=== PATIENT | female | born 2000 | race Hispanic/Latino ===

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

== ENCOUNTER 2018-06-01 01:07 | Emergency (ER) | payer SELFPAY | END 2018-06-01 03:07 | disposition home or self-care (01) | LOC: ERS 01:07 | DX: L02.415 Cutaneous abscess of right lower limb (principal); E78.5 Hyperlipidemia, unspecified; I10 Essential (primary) hypertension; E11.9 Type 2 diabetes mellitus without complications | CPT/HCPCS: 10061; 87070; 87077; 87186; 87205 ==

== ENCOUNTER 2018-06-02 22:01 | Emergency (ER) | payer SELFPAY | END 2018-06-02 22:30 | disposition home or self-care (01) | LOC: ERS 22:01 | DX: Z48.817 Encounter for surgical aftercare following surgery on the skin and subcutaneous tissue (principal); I10 Essential (primary) hypertension; E78.5 Hyperlipidemia, unspecified; E11.9 Type 2 diabetes mellitus without complications; F41.0 Panic disorder [episodic paroxysmal anxiety]; F32.9 Major depressive disorder, single episode, unspecified | CPT/HCPCS: 99282 ==

== ENCOUNTER 2018-12-06 22:20 | Emergency (ER) | payer SELFPAY ==
--- NOTE | 2018-12-06 23:09 | RAD ---
EXAM: Right rib series with chest x-ray HISTORY: Rib pain after fall COMPARISON: None FINDINGS: Single view of the chest shows a normal sized cardiomediastinal silhouette. There is no elaine dence of consolidation, mass, or pleural effusion. Multiple views of the right ribs shows no evidence of displaced rib fracture. No underlying pleural t hickening or pneumothorax are seen. IMPRESSION: 1. No evidence of displaced rib fracture. 2. No evidence of acute cardiopulmonary disease.
[2018-12-06] MEDS ORDERED: Acetaminophen 325 MG TAB ONE (23:23)
== END 2018-12-06 23:38 | disposition home or self-care (01) ==
LOC: ERS 22:20
DX: S20.211A Contusion of right front wall of thorax, initial encounter (principal); O9A.219 Injury, poisoning and certain other consequences of external causes complicating pregnancy, unspecified trimester; O99.330 Smoking (tobacco) complicating pregnancy, unspecified trimester; F17.290 Nicotine dependence, other tobacco product, uncomplicated; W10.9XXA Fall (on) (from) unspecified stairs and steps, initial encounter

== ENCOUNTER 2018-12-21 20:48 | Emergency (ER) | payer MEDICAID, SELFPAY ==
[2018-12-21 22:52] LABS: Anion Gap 14 mmol/L (10-20); BUN (Urea Nitrogen) 6 mg/dL (7.0-18.7); Calc. Creatinine Clearance 0 mL/min (70-130); Calcium 9.3 mg/dL (7.8-10.44); Carbon Dioxide 22 mmol/L (22-29); Chloride 104 mmol/L (98-107); Estimated GFR-MDRD Greater than 90; Glucose 185 mg/dL (70-105); Potassium 3.6 mmol/L (3.5-5.1); Sodium 136 mmol/L (136-145)
== END 2018-12-21 23:20 | disposition home or self-care (01) ==
LOC: ERS 20:48
DX: O24.911 Unspecified diabetes mellitus in pregnancy, first trimester (principal); E11.65 Type 2 diabetes mellitus with hyperglycemia; Z87.891 Personal history of nicotine dependence; Z79.84 Long term (current) use of oral hypoglycemic drugs; Z3A.08 8 weeks gestation of pregnancy
CPT/HCPCS: 36415; 36416; 80048; 99284

== ENCOUNTER 2018-12-22 10:38 | Observation (INO) | payer MEDICAID ==
[2018-12-22] MEDS ORDERED: Docusate 100 MG CAP PO PRN (11:30)
[2018-12-22] MEDS ORDERED: Acetaminophen 500 MG TAB PO PRN (11:30)
[2018-12-22] MEDS ORDERED: Ondansetron PF 4 MG/2 ML Vial IVP PRN (11:30)
[2018-12-22] MEDS ORDERED: Dextrose 5% in Water 1,000 ML IV PRN (11:33)
[2018-12-22] MEDS ORDERED: Dextrose 50% Abboject 50 ML SYRINGE SLOW IVP PRN (11:33)
--- NOTE | 2018-12-22 11:44 | PDOC.FPROB ---
FMR OB H&P: HPI - History of Present Illness Chief Complaint: Elevated Blood sugar History of Present Illness: 18 yo @ 9.1 wks dated by LMP comes in due to uncontrolled blood glucose at clinics. She was found to have an Hgb A1c of 10.4 and her glucose in clinic today was 200. She was dx with pregestational diabetes in 2012. She has not been on any mediation ever for this. She was started on metformin recently but sugars still remain elevated. Pt denies polyuria/polydipsia, denies VB/LOF/ Discharge. No contractions. FMR OB H&P: Current - Care : 3 Para: 0 Gestational age: 9.1 weeks Due date: 07/26/19 Dating Criteria: LMP FMR OB H&P: History - Past Medical History PMH: DM2, Hx of HTN and HLD (both controlled with lifestyle, taken off meds in 2015) - OB History OB History: 2 previous mis-carriages. 2013- during 1 Trimester 2015- EGA unknown - Surgical History Sx History: none - Social History Social History: Denies TAD - Family History Family History: DM FMR OB H&P: Medications - Current Home Medications: Medication Instructions Recorded Confirmed Type metFORMIN [Glucophage] 1,000 mg PO BID-WM 03/06/16 12/22/18 History Pnv No.95/Ferrous Fum/Folic AC 1 each PO DAILY 12/22/18 12/22/18 History [ Formula] Allergies/Adverse Reactions: Allergies Allergy/AdvReac Type Severity Reaction Status Date / Time No Known Allergies Allergy Verified 12/22/18 12:44 FMR OB H&P: ROS - Review of Systems General: denies: fever/chills, fatigue ENT: denies: nasal congestion, frequent nose bleed Cardiovascular: denies: chest pain, palpitation Respiratory: denies: cough, congestion, shortness of breath Gastrointestinal: denies: abdominal pain, indigestion Genitourinary (Female): denies: incontinence, dysuria, polyuria Musculoskeletal: denies: pain, stiffness Neurologic: denies: numbness, syncope Integumentary: denies: rash, lesions Breast: denies: lumps, bumps Endocrine: denies: cold intolerance, heat intolerance, polydipsia, polyuria Psychological: denies: depression, anxiety FMR OB H&P: Vital Signs - Maternal Vital signs: BP 100/56, HR 93, RR 20, TEMP 97.7 FMR OB H&P: Physical Exam - Physical Exam General: NAD, awake, alert and oriented HEENT: EOMI, grossly normal vision, grossly normal hearing Neck: supple, trachea midline Chest: non-tender to palpation Heart: RRR, normal S1/S2 General: CTAB, no respiratory distress Abdomen: soft, non-tender Musculoskeletal: normal gait and station, pulses present Neurological: no tremor, no focal deficit Skin: no rash, good tugor Lymphatic: no unusual bruising or bleeding, no purpura Psychiatric: intact recent and remote memory, good judgement and insight FMR OB H&P: Results - Labs Lab results: Laboratory Results - last 24 hr 12/22/18 10:53 POC Glucose 159 H FMR OB H&P: A/P - Problem List (1) Current Visit: Yes Status: Acute (2) History of chronic hypertension Current Visit: Yes Status: Acute Code(s): Z86.79 - PERSONAL HISTORY OF OTHER DISEASES OF THE CIRCULATORY SYSTEM (3) History of hyperlipidemia Current Visit: Yes Status: Acute Code(s): Z86.39 - PERSONAL HISTORY OF ENDO , NUTRITIONAL AND METABOLIC DISEASE (4) Hyperglycemia due to type 2 diabetes mellitus Current Visit: No Status: Acute Code(s): E11.65 - TYPE 2 DIABETES MELLITUS WITH HYPERGLYCEMIA Qualifiers: Diabetes mellitus nursing home insulin use: with salvage determiner use Qualified Code( s): E11.65 - Type 2 diabetes mellitus with hyperglycemia; Z79.4 - long term ( current) use of insulin Comment: -poorly controlled diabetes secondary to medical noncompliance -HbA1C 12 -presented to ER yesterday with blood sugar >500, likely in HHS -responded well to IV/SC insulin -currently running in 300s -morning basal dose increased to 30 units and evening dose increased to 20 units -continue 1/2NS@200 mls/hr Discussion: pre-gestational DM, uncontrolled A- uncontrolled with metformin alone. Will need to titrate up insulin regimen. Discussed NPH vs Lantus with lispro with pt. She opts for lantus. Will need to gain good control especially considering pts risk and hx of spontaneous abortions. P- Start insulin titration with lantus and lispro -continue home metformin -accuchecks fasting and 2hr post prandial -notify MD if accucheck greater than or equal to 130 -Diet: 2000 kcal/day divided into 3 meals and 2 snacks (one being at bedtime) -daily weights -DM education including dietary counselling Hx of chronic HTN A- pt was on lisinopril but taken off medications as pt was controlled with lifestyle modifications in 2015 P- will monitor BPs iUP, first trimester A- Pt has not been dated by US yet P- vitamin -transvaginal US for dating
[2018-12-22 12:21] VITALS: BMI 37.1
[2018-12-22 14:29] LABS: Bilirubin Negative (Negative); Blood, Urine Negative (Negative); Clarity Turbid (Clear); Glucose, Urine (Dipstick) Greater than 1000 mg/dL (Negative); Leukocyte 500 Leu/uL (Negative); Mucous/LPF Rare LPF (<2+); Nitrite Negative (Negative); Protein, Urine (Dipstick) 10 mg/dL (Neg-Trace); Urobilinogen Normal mg/dL (Less than 2); WBC/HPF Greater than 50 HPF (0-3)
[2018-12-22 14:52] LABS: Bacteria/HPF 2+ HPF (None Seen)
[2018-12-22 14:53] LABS: Urine Culture Reflex No No
--- NOTE | 2018-12-22 16:41 | ULT ---
ULTRASOUND PELVIC TRANSVAGINAL: Date: 12/22/18 HISTORY: Dates. COMPARISON: None. FINDINGS: Real-time Huston scale and color evaluation of the gravid uterus was performed via transabdominal and t ransvaginal approach. Spectral analysis was also performed. Right ovary is normal with adequate vascular flow. Left ovary not well seen. Single, viable intrauterine , with heart rate documented at 153 beats/minute. Average ultrasound age is 7 weeks/4 days. Estimated date of delivery is 08/06/2019. Robards-rump length 1.53 cm, 7 weeks/6 days. Gestational sac diameter 2.2 cm, 7 weeks/1 day. IMPRESSION: Normal single, viable intrauterine , with average ultrasound age of 7 weeks/4 days. Estimate d date of delivery is 08/06/2019. POS: HOME
[2018-12-22] MEDS: metFORMIN 500 MG TAB PO SCH (16:48)
[2018-12-22] MEDS ORDERED: HumaLOG 300 UNITS/3 ML VIAL SC SCH ×2 (17:00→21:30)
--- NOTE | 2018-12-22 22:37 | PDOC.EVN ---
Event Note - Event Note Event Note: Visited patient, mother and boyfriend at patient's request to see and explain dating ultrasound results. She would like some pictures of U/S if possible to take home. Also discussed with patient the importance of blood sugar control for herself and for her . Spoke about risk to development including heart defects, LGA, etc., and loss. Patient voiced understanding. Also discussed blood sugar goals of fasting <95 and 2-hour postprandial <120. Advised patient not to snack the rest of the evening (had large dinner and burrito wrap post dinner) in order to have a fasting sugar under the goal. Patient again voiced understanding. Lillie Aguayo MD PGY-1
[2018-12-23] MEDS: metFORMIN 500 MG TAB PO SCH ×2 (08:20→16:51)
[2018-12-23] MEDS: HumaLOG 300 UNITS/3 ML VIAL SC SCH ×3 (08:21→16:53)
--- NOTE | 2018-12-23 08:23 | PDOC.FM ---
- Subjective Subjective: Pt feeling well this AM. No complaints. Verbalized understanding regarding the importance of compliance with CC diet. no fever/chills, no nausea/vomiting - Objective Vital Signs & Weight: Vital Signs (12 hours) Temp Pulse Resp BP 12/23/18 04:02 98.2 F 95 16 103/53 L 12/23/18 01:10 98.7 F 91 12 116/57 L Weight Weight 85.275 kg I&O: 12/22/18 12/23/18 12/24/18 06:59 06:59 06:59 Intake Total 350 Balance 350 Phys Exam - Physical Examination Constitutional: NAD HEENT: moist MMs, sclera anicteric Neck: no nodes, no JVD Respiratory: no wheezing, clear to auscultation bilateral Cardiovascular: RRR, no significant murmur Gastrointestinal: soft, non-tender Musculoskeletal: pulses present Neurological: normal sensation, moves all 4 limbs Psychiatric: normal affect, A&O x 3 Skin: normal turgor, cap refill <2 seconds Dx/Plan (1) Status: Acute (2) History of chronic hypertension Code(s): Z86.79 - PERSONAL HISTORY OF OTHER DISEASES OF THE CIRCULATORY SYSTEM Status: Acute (3) History of hyperlipidemia Code(s): Z86.39 - PERSONAL HISTORY OF ENDO, NUTRITIONAL AND METABOLIC DISEASE Status: Acute (4) Hyperglycemia due to type 2 diabetes mellitus Code(s): E11.65 - TYPE 2 DIABETES MELLITUS WITH HYPERGLYCEMIA Status: Acute Qualifiers: Diabetes mellitus terminologist insulin use: with chcf use Qualified Code( s): E11.65 - Type 2 diabetes mellitus with hyperglycemia; Z79.4 - half-way ( current) use of insulin - Plan Plan: pre-gestational DM, uncontrolled A- PP BG in 160s x2, Fasting this AM 132. Pt will benefit from further titration and counselling on dietary compliance importance. She had burrito from cafe on her own accord last night after given dinner. P- Increased Lispro from 8 -->10u TID-WM -Increase Lantus from 30-->34u QAM -continue home metformin -accuchecks fasting and 2hr post prandial -notify MD if accucheck greater than or equal to 130 -Diet: 2000 kcal/day divided into 3 meals and 2 snacks (one being at bedtime) -daily weights -DM education including dietary counselling -pt to perform all accuchecks and insulin injections Hx of chronic HTN A- pt was on lisinopril but taken off medications as pt was controlled with lifestyle modifications in 2016. BPs WNL since admission P- will monitor BPs iUP, first trimester A- Dating US performed yesterday shows new dates, GUILLERMO 08/06/2019 P- vitamin dispo: probable DC tomorrow Addendum - Attending - Attending Attestation Date/Time: 12/23/18 [id number] I personally evaluated the patient and discussed the management with Dr. Grande. I agree with the History, Examination, Assessment and Plan documented above with any addition or exceptions noted below. DM control improved on insulin. Pt. noncompliant with diet overnight. Stressed to her it's critical necessity. Will see how she does after full 24 hours of insulin maintenance.
[2018-12-23] MEDS ORDERED: Insulin Glargine 34 UNITS in Pre-Filled Syringe 1 EACH SC SCH (09:00)
[2018-12-23] MEDS ORDERED: Insulin Glargine 30 UNITS in Pre-Filled Syringe SC SCH (09:00)
[2018-12-23] MEDS: Prenatal Vitamin 1 TAB PO SCH (09:29)
--- NOTE | 2018-12-24 07:25 | PDOC.FM ---
- Subjective Subjective: Pt feeling well, reports she learned a lot from the dietary counselling yesterday. Feeling motivated to be compliant with diet. - Objective MAR Reviewed: Yes Vital Signs & Weight: Vital Signs (12 hours) Temp Pulse Resp BP Pulse Ox 12/24/18 04:29 98.4 F 88 18 98/57 L 12/24/18 00:20 98.4 F 91 18 110/59 L 12/23/18 20:30 98.6 F 97 18 103/55 L 97 Weight Weight 84.141 kg I&O: 12/23/18 12/24/18 12/25/18 06:59 06:59 06:59 Intake Total 350 2220 Output Total 550 Balance 350 1670 Additional Labs: Laboratory Tests 12/24/18 06:14 POC Glucose 128 H Phys Exam - Physical Examination Constitutional: NAD HEENT: moist MMs, sclera anicteric Neck: no JVD, supple Respiratory: no wheezing, clear to auscultation bilateral Cardiovascular: RRR, no significant murmur Gastrointestinal: soft, non-tender Musculoskeletal: no edema, pulses present Neurological: normal sensation, moves all 4 limbs Psychiatric: normal affect, A&O x 3 Skin: no rash, normal turgor Dx/Plan (1) Status: Acute (2) History of chronic hypertension Code(s): Z86.79 - PERSONAL HISTORY OF OTHER DISEASES OF THE CIRCULATORY SYSTEM Status: Acute (3) History of hyperlipidemia Code(s): Z86.39 - PERSONAL HISTORY OF ENDO, NUTRITIONAL AND METABOLIC DISEASE Status: Acute (4) Hyperglycemia due to type 2 diabetes mellitus Code(s): E11.65 - TYPE 2 DIABETES MELLITUS WITH HYPERGLYCEMIA Status: Acute Qualifiers: Diabetes mellitus terminal system operator insulin use: with terminal system operator use Qualified Code( s): E11.65 - Type 2 diabetes mellitus with hyperglycemia; Z79.4 - terminal superintendent ( current) use of insulin - Plan Plan: pre-gestational DM, insulin dependent A- PP BGs improved yesterday in 120/130/150s. Fasting still needing improvement this AM at 128. Pt seems motivated all together. P- continue Lispro 10u TID-WM -Increase Lantus from 34-->36u QAM -continue home metformin -accuchecks fasting and 2hr post prandial -notify MD if accucheck greater than or equal to 130 -Diet: 2000 kcal/day divided into 3 meals and 2 snacks (one being at bedtime) -daily weights -DM education including dietary counselling -pt to perform all accuchecks and insulin injections Hx of chronic HTN A- pt was on lisinopril but taken off medications as pt was controlled with lifestyle modifications in 2016. BPs WNL since admission P- will monitor BPs iUP, first trimester A- Dating US performed yesterday shows new dates, GUILLERMO 08/06/2019 P- vitamin dispo: probable DC today
[2018-12-24] MEDS: metFORMIN 500 MG TAB PO SCH (09:00)
[2018-12-24] MEDS ORDERED: Insulin Glargine 36 UNITS in Pre-Filled Syringe 1 EACH SC SCH (09:00)
[2018-12-24] MEDS: HumaLOG 300 UNITS/3 ML VIAL SC SCH ×2 (09:00→13:23)
[2018-12-24] MEDS: Prenatal Vitamin 1 TAB PO SCH (09:00)
[2018-12-24 12:05] VITALS: BP 110/63; TEMP 99.1
--- NOTE | 2018-12-24 17:15 | PDOC.EVN ---
Event Note - Event Note Event Note: Pt called to verify insurance will cover her meds -called once at 1330 12/24, she had not yet picked it up. Instructed to pick it up NICOLE. -called again 12/24 at 1500 no answer -called again 12/24 at 1715 pt still has not picked up insulin. But reports she will get it soon and will call the landscape maintenance internship pager and leave her number if she insurance does not cover lantus.
--- NOTE | 2018-12-25 01:29 | DIS ---
DATE OF ADMISSION: 12/22/2018 DATE OF DISCHARGE: 12/24/2018 ADMITTING ATTENDING: Helder Weiner MD DISCHARGE ATTENDING: Helder Weiner MD RESIDENT: Helder Grande MD CONSULTS: None. PROCEDURES: On 12/22/2018, pelvic transvaginal ultrasound, dating ultrasound. Impression: Normal single viable intrauterine with average ultrasound, age of 7 weeks 4 days, estimated date of delivery is 08/06/2019. DISCHARGE MEDICATIONS: 1. Metformin 1000 mg p.o. b.i.d. 2. vitamin 1 each daily. 3. Hypodermic needles or insulin. 4. Humalog 10 units subcutaneous t.i.d. with meals. 5. Insulin Lantus 38 units subcutaneous q.a.m. DISCONTINUED MEDICATIONS: None. PRIMARY DIAGNOSIS: Pregestational diabetes, insulin dependent. SECONDARY DIAGNOSES: Intrauterine , first trimester; history of chronic hypertension. HISTORY OF PRESENT ILLNESS/HOSPITAL COURSE: This is a 18-year-old female who is G3, P0-0-2-0, who presented from the clinic at 9.1 weeks gestational age, dated by last menstrual period, coming in for uncontrolled blood glucose. The patient had history of A1c of 10.4 and random blood glucose check of 200 outside of hospital and so, the patient was admitted and titrated up on insulin. After discussion with the patient, it was deemed that she would be started on a regimen of Lantus every morning with short-acting insulin with each meal. Additionally, the patient had diabetic education, dietary education, and education per nursing on how to properly do blood glucose checks and administer her insulin. The patient was also taught on how to keep a blood glucose log and educated on the importance of maintaining good control of sugars for the viability of her fetus. The patient's fasting and postprandial sugars decreased with insulin management as insulin was titrated up and it was eventually deemed that the patient was ready for discharge, verbalized intent to continue with diabetic diet, close monitoring of postprandial and fasting blood glucose checks and insulin use. Prescriptions were sent to her pharmacy at [facility] and verified with Case Management that they will be most likely be covered by her insurance. The patient was instructed to go immediately to Pharmacy after discharge and pick them up and to call our pager if she should have any issues with insurance not covering her insulin or otherwise, again an alternative insulin regimen would be sent. The patient agreed to this plan and was discharged home. Additionally, the patient's stay in the hospital was significant for a pelvic ultrasound as stated above, which predated her estimated due date to be 08/06/2019. DISPOSITION: Stable. DISCHARGE INSTRUCTIONS: 1. Location: Home. 2. Diet: Consisting carb diabetic diet, 2000 kilocalories per day divided into three meals with two small snacks, one snack being before bedtime. 3. Followup: Follow up in clinic in 3 days, on Thursday. 4. Activity: As tolerated. Job ID: [id number]
== END 2018-12-24 13:50 | disposition home or self-care (01) ==
LOC: ERS 10:38 → INTOOBSV 11:07 → 3SW 11:07 → UNDOADMOB 11:07 → 3SW 14:09 → EDSTATUS 15:13 → UNDODISOB 12-24 13:50 → 3SW 01-03 15:11
PROVIDERS: ADMIT Family Medicine; ATTEND Family Medicine
DX: O24.311 Unspecified pre-existing diabetes mellitus in pregnancy, first trimester (principal); E11.65 Type 2 diabetes mellitus with hyperglycemia; O10.911 Unspecified pre-existing hypertension complicating pregnancy, first trimester; O99.281 Endocrine, nutritional and metabolic diseases complicating pregnancy, first trimester; E78.5 Hyperlipidemia, unspecified; Z87.59 Personal history of other complications of pregnancy, childbirth and the puerperium; Z91.14 Patient's other noncompliance with medication regimen; Z79.4 Long term (current) use of insulin; Z3A.09 9 weeks gestation of pregnancy
CPT/HCPCS: 36416; 76856; 81001; G0378; J1815

== ENCOUNTER 2019-01-13 00:09 | Emergency (ER) | payer MEDICAID ==
[2019-01-13] MEDS ORDERED: Lidocaine 1% w/Epinephrine 1:100K 20 ML VIAL ONE (00:22)
== END 2019-01-13 00:42 | disposition home or self-care (01) ==
LOC: ERS 00:09
DX: L02.212 Cutaneous abscess of back [any part, except buttock and flank] (principal); L72.9 Follicular cyst of the skin and subcutaneous tissue, unspecified; E13.9 Other specified diabetes mellitus without complications; E78.5 Hyperlipidemia, unspecified; I10 Essential (primary) hypertension; Z87.891 Personal history of nicotine dependence
CPT/HCPCS: 10060; J2001

== ENCOUNTER 2019-01-18 08:22 | Emergency (ER) | payer MEDICAID ==
--- NOTE | 2019-01-18 11:09 | RAD ---
EXAM: Chest 2 views: HISTORY: Shortness of breath COMPARISON: None. FINDINGS: There is a normal-sized cardiomediastinal silhouette. There is no evidence of consolidation, mass, or pleural effusion. The bones are unremarkable. IMPRESSION: No evidence of acute cardiopulmonary disease
[2019-01-18 11:30] LABS: #Eosinphils 0.2 thou/uL (0.0-0.7); #Lymphocytes 2.2 thou/uL (1.20-3.40); #Monocytes 0.6 thou/uL (0.11-0.59); #Neutrophils 6.1 thou/uL (1.40-6.50); %Basophils 0.4 % (0.0-1.0); %Eosinophils 2.3 % (0.0-10.0); %Lymphocytes 24.3 % (28.0-48.0); %Monocytes 6.5 % (0.0-4.0); %Neutrophils 66.5 % (31.0-61.0); Hemoglobin 12.7 g/dL (12.0-16.0); Mean Corpuscular HGB CONC 34.3 g/dL (32.0-36.0); Mean Corpuscular Hemoglobin 28.5 pg (25.0-35.0); Mean Corpuscular Volume 83.1 fL (78.0-98.0); Mean Platelet Volume 7.9 fL (7.4-10.4); Platelet Count 331 thou/uL (130-400); RBC Distribution Width 11.6 % (11.5-14.5); Red Blood Cell (RBC) Count 4.48 mill/uL (4.00-5.20); White Blood Cell (WBC) Count 9.2 thou/uL (4.8-10.8)
[2019-01-18 11:40] LABS: BHCG - Serum POSITIVE (NEGATIVE); Pregs Control Background? CLEAR/WHITE (CLR/WHITE); Pregs Control Bar Appear? YES (CONTROL BAR)
[2019-01-18 11:48] LABS: ALT (SGPT) 16 U/L (8-55); AST (SGOT) 9 U/L (5-34); Alkaline Phosphatase 78 U/L (40-150); Anion Gap 14 mmol/L (10-20); BUN (Urea Nitrogen) 8 mg/dL (7.0-18.7); Bilirubin, Total 0.3 mg/dL (0.2-1.2); Calc. Creatinine Clearance 0 mL/min (70-130); Calcium 9.4 mg/dL (7.8-10.44); Carbon Dioxide 24 mmol/L (22-29); Chloride 102 mmol/L (98-107); Estimated GFR-MDRD Greater than 90; Globulin 3.8 g/dL (2.4-3.5); Glucose 267 mg/dL (70-105); Potassium 3.7 mmol/L (3.5-5.1); Protein, Total 7.8 g/dL (6.0-8.3); Sodium 136 mmol/L (136-145)
== END 2019-01-18 12:47 | disposition home or self-care (01) ==
LOC: ERS 08:22
DX: O03.9 Complete or unspecified spontaneous abortion without complication (principal); R07.9 Chest pain, unspecified; E78.5 Hyperlipidemia, unspecified; I10 Essential (primary) hypertension; E13.9 Other specified diabetes mellitus without complications; Z87.891 Personal history of nicotine dependence; Z79.899 Other long term (current) drug therapy
CPT/HCPCS: 36415; 71046; 80053; 84484; 84703; 85025; 85379; 93005

== ENCOUNTER 2019-02-03 06:32 | Emergency (ER) | payer OTHER, MEDICAID ==
[2019-02-03 07:04] LABS: #Eosinphils 0.3 thou/uL (0.0-0.7); #Lymphocytes 2.5 thou/uL (1.20-3.40); #Monocytes 0.6 thou/uL (0.11-0.59); #Neutrophils 5.4 thou/uL (1.40-6.50); %Basophils 0.4 % (0.0-1.0); %Eosinophils 3.3 % (0.0-10.0); %Lymphocytes 28.6 % (28.0-48.0); %Monocytes 6.7 % (0.0-4.0); Hemoglobin 13.1 g/dL (12.0-16.0); Mean Corpuscular HGB CONC 34.5 g/dL (32.0-36.0); Mean Corpuscular Hemoglobin 28.6 pg (25.0-35.0); Mean Platelet Volume 8.1 fL (7.4-10.4); Platelet Count 278 thou/uL (130-400); RBC Distribution Width 11.6 % (11.5-14.5); Red Blood Cell (RBC) Count 4.57 mill/uL (4.00-5.20); White Blood Cell (WBC) Count 8.8 thou/uL (4.8-10.8)
[2019-02-03 07:20] LABS: BHCG - Serum POSITIVE (NEGATIVE); Pregs Control Background? CLEAR/WHITE (CLR/WHITE); Pregs Control Bar Appear? YES (CONTROL BAR)
[2019-02-03 07:28] LABS: ALT (SGPT) 21 U/L (8-55); AST (SGOT) 15 U/L (5-34); Alkaline Phosphatase 84 U/L (40-150); Anion Gap 11 mmol/L (10-20); BUN (Urea Nitrogen) 11 mg/dL (7.0-18.7); Bilirubin, Total 0.3 mg/dL (0.2-1.2); Calc. Creatinine Clearance 0 mL/min (70-130); Calcium 9.4 mg/dL (7.8-10.44); Carbon Dioxide 25 mmol/L (22-29); Chloride 104 mmol/L (98-107); Estimated GFR-MDRD Greater than 90; Globulin 3.5 g/dL (2.4-3.5); Glucose 207 mg/dL (70-105); Potassium 3.6 mmol/L (3.5-5.1); Protein, Total 7.5 g/dL (6.0-8.3); Sodium 136 mmol/L (136-145)
[2019-02-03] MEDS ORDERED: Acetaminophen 500 MG TAB ONE (08:58)
[2019-02-03] MEDS ORDERED: Ondansetron ODT 4 MG TAB ONE (08:58)
[2019-02-03] MEDS ORDERED: Ketorolac Tromethamine 30 MG/ML VIAL ONE (08:58)
--- NOTE | 2019-02-03 09:11 | ULT ---
TRANSABDOMINAL AND TRANSVAGINAL PELVIC ULTRASOUND WITH SINGH SCALE AND COLOR FLOW AND SPECTRAL DOPPLER IMAGING: HISTORY: Vaginal bleeding. FINDINGS: The uterus measures 8.5 x 4.5 x 4.9 cm. The right ovary is not visualized. The left ovary measures 2.1 x 0.8 x 0.9 cm. Flow is demonstrated to the left ovary. A single intrauterine gestational sac is seen with measurements corresponding to an estimated gestati onal age of 8 weeks 1 day and GUILLERMO at 09/14/2019. The crown-lump length measures 1.28 cm and the gestat ional sac diameter is 3.5 cm. No heart tones are identified. No free fluid is seen in the cul -de-sac. IMPRESSION: Single intrauterine gestation of 8 weeks 1 day estimated gestational age without heart tones. The possibility of 1st trimester demise should be considered. Correlation with serial serum beta HCG levels and followup ultrasound would be helpful. POS: WAYNE
== END 2019-02-03 09:26 | disposition home or self-care (01) ==
LOC: ERS 06:32
DX: O03.9 Complete or unspecified spontaneous abortion without complication (principal); E11.9 Type 2 diabetes mellitus without complications; F32.9 Major depressive disorder, single episode, unspecified; Z87.891 Personal history of nicotine dependence; Z79.899 Other long term (current) drug therapy
CPT/HCPCS: 36415; 76856; 80053; 84702; 84703; 85025; 86850; 86900; 86901; 93976; 96372; J1885; Q0162

== ENCOUNTER 2019-07-04 21:15 | Emergency (ER) | payer MEDICAID, OTHER ==
[2019-07-04 21:37] LABS: #Basophils 0.1 thou/uL (0.0-0.2); #Eosinphils 0.1 thou/uL (0.0-0.7); #Lymphocytes 2.3 thou/uL (1.20-3.40); #Monocytes 0.6 thou/uL (0.11-0.59); #Neutrophils 6.6 thou/uL (1.40-6.50); %Basophils 0.8 % (0.0-1.0); %Eosinophils 1.4 % (0.0-10.0); %Lymphocytes 23.7 % (21.0-51.0); %Monocytes 6.6 % (0.0-10.0); %Neutrophils 67.5 % (42.0-75.0); Hemoglobin 14.3 g/dL (12.0-16.0); Mean Corpuscular HGB CONC 33.9 g/dL (32.0-36.0); Mean Corpuscular Hemoglobin 28.1 pg (27.0-31.0); Mean Corpuscular Volume 82.8 fL (78.0-98.0); Mean Platelet Volume 9.3 fL (7.4-10.4); Platelet Count 263 thou/uL (130-400); RBC Distribution Width 12.3 % (11.5-14.5); Red Blood Cell (RBC) Count 5.11 mill/uL (4.20-5.40); White Blood Cell (WBC) Count 9.8 thou/uL (4.8-10.8)
[2019-07-04 22:00] LABS: ALT (SGPT) 22 U/L (8-55); AST (SGOT) 16 U/L (5-34); Albumin 4.3 g/dL (3.5-5.0); Alkaline Phosphatase 96 U/L (40-110); Anion Gap 12 mmol/L (10-20); BUN (Urea Nitrogen) 6 mg/dL (7.0-18.7); Bilirubin, Total 0.4 mg/dL (0.2-1.2); Calc. Creatinine Clearance 0 mL/min (70-130); Calcium 9.4 mg/dL (7.8-10.44); Carbon Dioxide 24 mmol/L (22-29); Chloride 101 mmol/L (98-107); Estimated GFR-MDRD Greater than 90; Glucose 374 mg/dL (70-105); Lipase 30 U/L (8-78); Potassium 3.4 mmol/L (3.5-5.1); Protein, Total 8.3 g/dL (6.0-8.3); Sodium 134 mmol/L (136-145)
[2019-07-04 22:11] LABS: BHCG - Serum POSITIVE (NEGATIVE); Pregs Control Background? CLEAR/WHITE (CLR/WHITE); Pregs Control Bar Appear? YES (CONTROL BAR)
[2019-07-04 23:42] LABS: Bilirubin Negative (Negative); Blood, Urine Negative (Negative); Clarity Clear (Clear); Glucose, Urine (Dipstick) Greater than 1000 mg/dL (Negative); Leukocyte 75 Leu/uL (Negative); Nitrite 2+ (Negative); Protein, Urine (Dipstick) Negative (Neg-Trace); Squamous Epithelial 21-50 HPF (0-3); Urobilinogen Normal mg/dL (Less than 2); Yeast-Budding 1+ HPF (None Seen)
[2019-07-04 23:43] LABS: Pregnancy Test - Urine (BHCG) POSITIVE (Negative); Pregu Control Background? CLEAR/WHITE (CLR/WHITE); Pregu Control Bar Appear? YES (CONTROL BAR); Specific Gravity 1.038 (1.002-1.036)
[2019-07-04 23:49] LABS: Bacteria/HPF 1+ HPF (None Seen)
--- NOTE | 2019-07-05 03:40 | CON ---
DATE OF CONSULTATION: 07/05/2019 CHIEF COMPLAINT: Abdominal pain. HISTORY OF PRESENT ILLNESS: The patient is a 19-year-old, G5, P0 female, presenting to the emergency room with abdominal cramping, concerned about miscarriage due to her history and came for evaluation. During her workup, the patient was noted to have a 1.5 cm cystic mass on her ovary and no intrauterine with a quantitative HCG at around 900. Given the possibility of ectopic , LINUX ADMIN ENGINEER was consulted for evaluation. In meeting with the patient, the patient reports that she has a history of 4 first-trimester spontaneous losses. She reports that she has never had a workup with the providers because she is scared that they will tell her she will never be able to have children. She reports that she has been having some cramping midline that brought her in for the day. She reports this pain is less intense than menstrual cramps. She denies any pain in her lateral pelvic region. Her last menstrual period was the 26 of May. The patient denies any fever, chills, headache, chest pain, shortness of breath, nausea, vomiting, diarrhea, constipation, hip problems, knee problems, muscle weakness, any new rashes, vaginal bleeding, leakage of fluid. PAST MEDICAL HISTORY: Type 2 diabetes. She is on metformin 1000 mg twice a day. Reports fasting to be under 100 and her postprandials to be often times up to 150s, but not any higher. 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 PAST SURGICAL HISTORY: Negative. SOCIAL HISTORY: The patient reports quitting tobacco use over a year ago. Denies alcohol or drug use. ALLERGIES: NO KNOWN DRUG ALLERGIES. MEDICATIONS: 1. Sertraline 25 mg a day. 2. Metformin 1000 mg twice a day. PHYSICAL EXAMINATION: VITAL SIGNS: Blood pressure 132/69, pulse 114, respiratory rate of 20, temperature 99.3, saturating 100% on room air. GENERAL: She appears to be in no acute distress. She is tearful during our conversation, but she is alert, oriented, cooperative, and pleasant to interact with. HEENT: Head is normocephalic, atraumatic. LUNGS: Clear to auscultation bilaterally. HEART: Has regular rate and rhythm. ABDOMEN: Soft. She has no right upper quadrant tenderness. No lateral tenderness in her adnexa. She does have some suprapubic tenderness. EXTREMITIES: Nontender, nonedematous. LABORATORY DATA: The patient has a white count of 9.8, hemoglobin 14.3, hematocrit of 42.3, and platelets of 263,000. Urinalysis shows a specific gravity of 1.038, 2+ nitrites, leukocyte esterase, also 25-50 squamous cells. A serum HCG of 832, progesterone of 11.8. Pelvic ultrasound report not available; however, I did talk to the tech, who reports about a 1.4 cm heterogeneous cystic mass on the ovary and a thick endometrium, but no visible IUP at this point. ASSESSMENT AND PLAN: The patient is a 19-year-old female with a and history of recurrent loss. She has been having some cramping, but no evidence of adnexal tenderness or pain. Quant levels are too low for us to be able to see definitively an intrauterine . The patient has been counseled to the possibility of an ectopic and though she has no symptoms currently, the patient has been asked to monitor her symptoms for right recurrent pelvic pain and to come in if that becomes present, persistent, or worsening. Otherwise, the patient has been asked to follow up with clinic, which she has an appointment for next for July 13. She has also been asked to start a baby aspirin and increase her folic acid. I have stressed the importance of a thorough workup should this fail and to identify areas that can be improved upon to be able to maintain a . I have discussed my recommendations with the ER provider, who will be discharging her home once the progesterone levels had returned. The patient ultimately was discharged home. Job ID: [id number]
--- NOTE | 2019-07-05 09:19 | ULT ---
PRELIMINARY REPORT/[facility]/EMERGENCY AFTER HOURS PROCEDURE: This report was discussed with Tigre Coleman DO by Lilia Ma on Jul 05, 2019 00:36:00 CARBONIZER TESTER. Addendum electronically signed by Lilia Ma on July 05, 2019 12:36:20 AM CARBONIZER TESTER EXAM: US Obstetrical, Complete <14 weeks CLINICAL HISTORY: Midline pelvic cramping pain x 3 days, no vaginal bleeding, HCG 832 HX previous mis carriages TECHNIQUE: Transvaginal and transabdominal imaging of the maternal pelvis and a <14 week gestation [employer] image documentation. COMPARISON: None provided. FINDINGS: GESTATION: No evidence for intrauterine gestation UTERUS: Unremarkable. No myometrial mass. Measures 7.5 x 3.4 x 4.0 cm. Endometrial thickening is se en at 18.2 mm CERVIX: Closed. Unremarkable. OVARIES: The RIGHT side measures 2.5 x 1.5 x 2.9 cm and demonstrates a small complex cyst measuring 1.3 x 1.2 x 1.2 cm. The LEFT ovary could not be visualized FREE FLUID: No free fluid. IMPRESSION: No evidence for intrauterine gestation at this time. Endometrial thickening is noted with a small co mplex RIGHT adnexal cyst and the possibility of a right-sided ectopic is not excluded. Aura rt-term follow-up ultrasound is advised along with clinical correlation ELECTRONICALLY SIGNED BY: Ulises Roy MD Jul 05, 2019 12:32:13 AM CARBONIZER TESTER This report is intended for review by the ordering physician only, in accordance of law. If you recei ve this report in error, please call [facility] at [phone]. FINAL REPORT BY DR. LARA EMERGENCY AFTER HOURS ULTRASOUND PELVIC ULTRASOUND TRANSVAGINAL DOPPLER DUPLEX: DATE: 07/05/2019. TIME: 12:16 a.m. HISTORY: A 19-year-old female with 1st trimester pelvic pain. TECHNIQUE: Transabdominal transducer used to evaluate intrapelvic contents using the urinary bladder as an acous tic window. Endovaginal transducer used to visualize intrapelvic contents in greater detail. Color fl ow Doppler and Pulsed Doppler spectral waveform analysis of ovaries. FINDINGS: No intrauterine gestational sac. Normal-size right ovary. Left ovary not visualized. No free fluid in the cul-de-sac. No ectopic gestation identified. However, a negative ultrasound does not rule out ectopic . No major disagreement with preliminary report by [facility]. IMPRESSION: 1. No intrauterine gestation identified. 2. An 18 mm thick endometrial stripe at the uterine fundus. SIRISHA Glass POS: CET
== END 2019-07-05 02:58 | disposition home or self-care (01) ==
LOC: ERS 21:15
DX: O23.41 Unspecified infection of urinary tract in pregnancy, first trimester (principal); O24.111 Pre-existing type 2 diabetes mellitus, in pregnancy, first trimester; O99.341 Other mental disorders complicating pregnancy, first trimester; F32.9 Major depressive disorder, single episode, unspecified; E11.9 Type 2 diabetes mellitus without complications; Z79.84 Long term (current) use of oral hypoglycemic drugs; Z87.891 Personal history of nicotine dependence; Z79.899 Other long term (current) drug therapy; Z3A.01 Less than 8 weeks gestation of pregnancy
CPT/HCPCS: 36415; 76856; 80053; 81003; 81015; 81025; 83690; 84144; 84702; 84703; 85025; 87804

== ENCOUNTER 2019-07-11 14:30 | Emergency (ER) | payer MEDICAID ==
[2019-07-11 15:17] LABS: #Eosinphils 0.1 thou/uL (0.0-0.7); #Lymphocytes 2.2 thou/uL (1.20-3.40); #Monocytes 0.6 thou/uL (0.11-0.59); #Neutrophils 5.7 thou/uL (1.40-6.50); %Basophils 0.3 % (0.0-1.0); %Eosinophils 1.6 % (0.0-10.0); %Lymphocytes 25.7 % (21.0-51.0); %Monocytes 6.9 % (0.0-10.0); %Neutrophils 65.5 % (42.0-75.0); Hemoglobin 13.6 g/dL (12.0-16.0); Mean Corpuscular HGB CONC 34.5 g/dL (32.0-36.0); Mean Corpuscular Hemoglobin 28.8 pg (27.0-31.0); Mean Corpuscular Volume 83.7 fL (78.0-98.0); Mean Platelet Volume 9.2 fL (7.4-10.4); Platelet Count 236 thou/uL (130-400); RBC Distribution Width 12.2 % (11.5-14.5); Red Blood Cell (RBC) Count 4.72 mill/uL (4.20-5.40); White Blood Cell (WBC) Count 8.7 thou/uL (4.8-10.8)
[2019-07-11 15:38] LABS: ALT (SGPT) 36 U/L (8-55); AST (SGOT) 22 U/L (5-34); Alkaline Phosphatase 81 U/L (40-110); Anion Gap 15 mmol/L (10-20); BUN (Urea Nitrogen) 7 mg/dL (7.0-18.7); Bilirubin, Total 0.5 mg/dL (0.2-1.2); Calc. Creatinine Clearance 0 mL/min (70-130); Calcium 9.1 mg/dL (7.8-10.44); Carbon Dioxide 20 mmol/L (22-29); Chloride 105 mmol/L (98-107); Estimated GFR-MDRD Greater than 90; Globulin 3.1 g/dL (2.4-3.5); Glucose 298 mg/dL (70-105); Potassium 4.2 mmol/L (3.5-5.1); Protein, Total 7.1 g/dL (6.0-8.3); Sodium 136 mmol/L (136-145)
[2019-07-11 17:31] LABS: Bacteria/HPF 2+ HPF (None Seen); Bilirubin Negative (Negative); Blood, Urine Negative (Negative); Clarity Turbid (Clear); Glucose, Urine (Dipstick) Greater than 1000 mg/dL (Negative); Leukocyte 500 Leu/uL (Negative); Nitrite 2+ (Negative); Protein, Urine (Dipstick) 20 mg/dL (Neg-Trace); Urobilinogen Normal mg/dL (Less than 2); WBC/HPF Greater than 50 HPF (0-3)
[2019-07-11 17:33] LABS: RBC/HPF 0-3 HPF (0-3)
--- NOTE | 2019-07-11 19:08 | ULT ---
US Pelvic Transvag W Doppler History: Pelvic pain Comparison: Pelvic ultrasound July 04, 2019 Findings: Real-time grayscale, color, and spectral analysis of the pelvis was performed transabdomina l and transvaginal approach. The uterus measures 8.7 x 7.4 x 4.5 cm. Left ovary measures 1.4 x 1.8 x 3.4 cm in the right ovary dori sures 3 x 2.1 x 3 cm. There appears to be an intrauterine gestational sac with mean sac diameter of 1.12 cm. No pole or yolk sac is yet appreciated. No free fluid in the pelvis. No subchorionic h emorrhage. Right ovarian flow is noted on the transvaginal exam. The left ovary cannot be evaluated transvaginal ly and flow was not interrogated. The average ultrasound age using the gestational sac diameter is 5 weeks 6 day with estimated date of delivery March 06, 2020. Impression: 1. Intrauterine gestational sac without pole or yolk sac yet appreciated may reflect an early p regnancy. Close follow-up hCG and pelvic ultrasound recommended. 2. No free fluid within the pelvis.
== END 2019-07-11 19:58 | disposition home or self-care (01) ==
LOC: ERS 14:30
DX: O23.41 Unspecified infection of urinary tract in pregnancy, first trimester (principal); O24.111 Pre-existing type 2 diabetes mellitus, in pregnancy, first trimester; O99.341 Other mental disorders complicating pregnancy, first trimester; F32.9 Major depressive disorder, single episode, unspecified; Z87.891 Personal history of nicotine dependence; Z79.84 Long term (current) use of oral hypoglycemic drugs; Z79.899 Other long term (current) drug therapy; Z3A.01 Less than 8 weeks gestation of pregnancy
CPT/HCPCS: 36415; 76856; 80053; 81003; 81015; 83690; 84702; 85025; 87077; 87086; 96361; 96374

== ENCOUNTER 2019-07-18 16:24 | Inpatient (IN) | payer OTHER ==
[2019-07-18 18:59] VITALS: BMI 39.9
[2019-07-18] MEDS ORDERED: Acetaminophen 325 MG TAB PO PRN (19:09)
[2019-07-18 19:29] LABS: #Eosinphils 0.2 thou/uL (0.0-0.7); #Lymphocytes 2.2 thou/uL (1.20-3.40); #Monocytes 0.6 thou/uL (0.11-0.59); #Neutrophils 5.2 thou/uL (1.40-6.50); %Basophils 0.5 % (0.0-1.0); %Eosinophils 2.1 % (0.0-10.0); %Lymphocytes 26.7 % (21.0-51.0); %Monocytes 7.2 % (0.0-10.0); %Neutrophils 63.6 % (42.0-75.0); Hemoglobin 13.3 g/dL (12.0-16.0); Mean Corpuscular HGB CONC 35.6 g/dL (32.0-36.0); Mean Corpuscular Hemoglobin 30.4 pg (27.0-31.0); Mean Corpuscular Volume 85.3 fL (78.0-98.0); Mean Platelet Volume 9.1 fL (7.4-10.4); Platelet Count 209 thou/uL (130-400); RBC Distribution Width 12.3 % (11.5-14.5); Red Blood Cell (RBC) Count 4.37 mill/uL (4.20-5.40); White Blood Cell (WBC) Count 8.2 thou/uL (4.8-10.8)
[2019-07-18] MEDS ORDERED: Sodium Chloride 0.9% 10 ML ONE (19:45)
[2019-07-18 19:49] LABS: ALT (SGPT) 32 U/L (8-55); AST (SGOT) 17 U/L (5-34); Albumin 3.9 g/dL (3.5-5.0); Alkaline Phosphatase 65 U/L (40-110); Anion Gap 12 mmol/L (10-20); BUN (Urea Nitrogen) 7 mg/dL (7.0-18.7); Bilirubin, Total 0.3 mg/dL (0.2-1.2); Calc. Creatinine Clearance 194 mL/min (70-130); Calcium 9.2 mg/dL (7.8-10.44); Carbon Dioxide 24 mmol/L (22-29); Chloride 104 mmol/L (98-107); Estimated GFR-MDRD Greater than 90; Globulin 3.2 g/dL (2.4-3.5); Glucose 223 mg/dL (70-105); Potassium 3.6 mmol/L (3.5-5.1); Protein, Total 7.1 g/dL (6.0-8.3); Sodium 136 mmol/L (136-145)
[2019-07-18 20:10] LABS: Hemoglobin A1c 10.5 % (4.0-6.0)
[2019-07-18] MEDS ORDERED: HumaLOG 300 UNITS/3 ML VIAL SC SCH (21:00)
[2019-07-18] MEDS ORDERED: NPH, Human Insulin Isophane 300 UNIT/3 ML VIAL SC SCH (21:00)
--- NOTE | 2019-07-18 21:18 | PDOC.FPROB ---
FMR OB H&P: Medications - Current Home Medications: Medication Instructions Recorded Confirmed Type metFORMIN [Glucophage] 1,000 mg PO BID-WM 03/06/16 07/18/19 History Entriken, Disposable [Easy Touch 1 each SC QID #120 dis.needle 12/23/18 Rx Hypodermic Needle] HumaLOG [HumaLOG Vial] 10 units SC TID-WM #12 vial 12/24/18 Rx Insulin Glargine [Lantus Vial] 38 units SC QAM #3 vial 12/24/18 Rx Vitamin 1 tab PO DAILY tab 12/24/18 07/18/19 Rx Allergies/Adverse Reactions: Allergies Allergy/AdvReac Type Severity Reaction Status Date / Time No Known Allergies Allergy Verified 07/18/19 18:50 FMR OB H&P: Vital Signs - Maternal Vital signs: Vital Signs - First Documented Temp Pulse Resp BP 97.3 F L 95 18 123/67 07/18/19 18:30 07/18/19 18:30 07/18/19 18:30 07/18/19 18:30 FMR OB H&P: Results - Labs Lab results: Laboratory Results - last 24 hr 07/18/19 07/18/19 07/18/19 19:19 19:19 19:19 WBC 8.2 RBC 4.37 Hgb 13.3 Hct 37.3 MCV 85.3 MCH 30.4 MCHC 35.6 RDW 12.3 Plt Count 209 MPV 9.1 Neutrophils % 63.6 Lymphocytes % 26.7 Monocytes % 7.2 Eosinophils % 2.1 Basophils % 0.5 Neutrophils # 5.2 Lymphocytes # 2.2 Monocytes # 0.6 H Eosinophils # 0.2 Basophils # 0.0 Sodium 136 Potassium 3.6 Chloride 104 Carbon Dioxide 24 Anion Gap 12 BUN 7 Creatinine 0.65 Estimated GFR (MDRD) Greater than 90 Glucose 223 H POC Glucose Hemoglobin A1c 10.5 H Calcium 9.2 Total Bilirubin 0.3 AST 17 ALT 32 Alkaline Phosphatase 65 Serum Total Protein 7.1 Albumin 3.9 Globulin 3.2 Albumin/Globulin Ratio 1.2 07/18/19 19:19 WBC RBC Hgb Hct MCV MCH MCHC RDW Plt Count MPV Neutrophils % Lymphocytes % Monocytes % Eosinophils % Basophils % Neutrophils # Lymphocytes # Monocytes # Eosinophils # Basophils # Sodium Potassium Chloride Carbon Dioxide Anion Gap BUN Creatinine Estimated GFR (MDRD) Glucose POC Glucose 224 H Hemoglobin A1c Calcium Total Bilirubin AST ALT Alkaline Phosphatase Serum Total Protein Albumin Globulin Albumin/Globulin Ratio FMR OB H&P: A/P - Problem List (1) Hyperglycemia due to type 2 diabetes mellitus Current Visit: No Status: Acute Code(s): E11.65 - TYPE 2 DIABETES MELLITUS WITH HYPERGLYCEMIA Qualifiers: Diabetes mellitus rn long term care insulin use: with rn long term care use Qualified Code( s): E11.65 - Type 2 diabetes mellitus with hyperglycemia; Z79.4 - USP ( current) use of insulin Comment: -poorly controlled diabetes secondary to medical noncompliance -HbA1C 12 -presented to ER yesterday with blood sugar >500, likely in HHS -responded well to IV/SC insulin -currently running in 300s -morning basal dose increased to 30 units and evening dose increased to 20 units -continue 1/2NS@200 mls/hr (2) Current Visit: No Status: Acute Discussion: Date/Time: 07/18/192117 PCP: [facility] HPI: This is a 19 yo F at 7.4 wks by LMP being admitted for management of uncontrolled pre-gestational DM. Her A1C at the [facility] was reported to be 11.5 and she has not been able to get started on insulin as of yet. She states she was prescribed the insulin yesterday but has not started as of yet. She did not follow up with anyone for management of her DM between pregnancies. She does not check her sugars at home because her accucheck machine is broken. She has had nausea and has been taking Zofran from a prior . History: OB hx: 3 miscarriages <10wks PMH: DMII, denies asthma, HTN PSH: denies Meds: PNV, metformin All: NKDA Soc Hx: denies smoking, alcohol, drugs currently. She was smoking 2 cigarettes per day but stopped 1 mo ago Fam Hx: denies downs, congenital defects, breast/ovarian cancers REVIEW OF SYSTEMS: Gen: no fever, chills, or sweats Neuro: no numbness/tingling, no weakness, denies headache ENT: denies congestion Eyes: no visual changes Resp: denies cough, no production, no SOB, no wheeze Card: denies chest pain, no palpitations GI: + nausea in AM, tolerating PO : no dysuria, no hematuria Skin: no rash, no erythema Psych: denies hx anxiety/depression Vitals: T: 97.3 R: 18 BP: 123/65 P:85 at: 98% on RA PHYSICAL EXAMINATION: General: NAD, alert and oriented x3 HEENT: EOMI, normal sclera Neck: Supple. Full ROM. Heart/Cardiovascular System: RRR, Cap refill < 3 seconds, no rub, no murmur Lungs/Respiratory System: clear to auscultation bilaterally. No increased work of breathing. Room air. Abdomen/Gastro-Intestinal System: no abdominal tenderness, normal bowel sounds, Gravid Extremities: Warm extremities. No cyanosis or edema. Neuro: No gross deficits appreciated Psychiatry: Awake, Alert and cooperative with exam Skin: no lesions, no rashes Musculoskeletal: Full ROM A/P: This is a 19 yo F at 7.4 wks by LMP being admitted for management of uncontrolled pre-gestational DM. # Un-controlled pre-gestational DM - A1c 10.5 - Start NPH 28U AM, 10U PM Lispro 10 w/ breakfast, 10 w/ supper - Check Am fasting glucose, 2 hrs postprandial, discussed with nursing # , N/V - Instructed to stop Zofran - Started diclegis # cHTN? - records in [facility] indicate cHTN, patient denies hx of HTN - [facility] records are down x3 providers tonight, check in AM Addendum - Attending - Attending Attestation Date/Time: 07/18/19 2330 I personally evaluated the patient and discussed the management with Dr. Rosetta Luz I agree with the History, Examination, Assessment and Plan documented above with any addition or exceptions noted below - 19 yo F at 7.4 wks by LMP being admitted for management of uncontrolled pre-gestational DM. Her A1C at the [facility] was reported to be 11.5 and she has not been able to get started on insulin as of yet. She states she was prescribed the insulin yesterday but has not started as of yet. She did not follow up with anyone for management of her DM between pregnancies. She does not check her sugars at home because her accucheck machine is broken. She has had nausea and has been taking Zofran from a prior . Exam repeated by me and agree with resident's findings. A/P: 1) Pregestational DM- Will start on NPH nad lispro; patient education and training. Case mgmt for glucometer and supplies. .
[2019-07-18] MEDS ORDERED: Doxylamine 25 MG TAB PO PRN (21:28)
[2019-07-18] MEDS ORDERED: Dextrose 5% in Water 1,000 ML IV PRN (21:51)
[2019-07-18] MEDS ORDERED: Dextrose 50% Abboject 50 ML SYRINGE SLOW IVP PRN (21:51)
[2019-07-19] MEDS: Doxylamine 25 MG TAB PO SCH ×2 (00:01→21:35)
[2019-07-19] MEDS: pyridOXINE 50 MG (B6) TAB PO SCH ×4 (00:01→21:33)
[2019-07-19] MEDS ORDERED: Ibuprofen 800 MG TAB ONE (04:42)
[2019-07-19] MEDS ORDERED: HumaLOG 300 UNITS/3 ML VIAL SC SCH ×4 (08:00→17:00)
[2019-07-19] MEDS ORDERED: metFORMIN 500 MG TAB PO SCH (08:00)
[2019-07-19] MEDS ORDERED: NPH, Human Insulin Isophane 300 UNIT/3 ML VIAL SC SCH ×3 (08:21→21:00)
--- NOTE | 2019-07-19 09:09 | PDOC.BPN ---
<Kath Dent - Last Filed: 07/19/19 09:06> - Brief Progress Note No acute events overnight Denies polyuria, polydipsia Denies VB/VB/LOF/CTX AVSS PE: NAD, RRR, CTAB, no edema A/P: 1. -Dating sono -PNV 2. Uncontrolled preGDM -A1c 10.5 -High dose folic acid + pNV -24 hr protein collection -EKG -Insulin regimen --> qAM: 32u NPH + 15u Lispro/qPM: 12u Lispro/qHS: 12u NPH -Diabetes education, pt will start administering insulin & doing accuchecks -After discussion of unknown metformin teratogenic effects, will hold off and do insulin for now 3. Hx of adjustment disorder with depressed mood -Reports doing well -Denies SI/HI -Declines restarting zoloft Discussed with Dr. Sanders <Maria Luisa Sanders - Last Filed: 07/19/19 10:22> Addendum - Attending - Attending Attestation Date/Time: 07/19/19 1015 I personally evaluated the patient and discussed the management with Dr. Dent I agree with the History, Examination, Assessment and Plan documented above with any addition or exceptions noted below. HD#1 Patient admitted for hyperglycemia in with recurrent miscarriages due to uncontrolled DM. 1. Uncontrolled DM, likely class B: Insulin regiment started last night. Not at goal (<95, <120). Will adjust based on weight. Will use 0.8 units/kg of insulin. Will start with NPH and Lispro. If requiring high doses of insulin will need to switch to basal insulin and meal time short acting. Discussed risk/ benefits of metformin and insulin. Patient decided to use strict insulin. DM education today. Patient to start accu checks and insulin injections today. CM following to help with medication coverage. 24 hour urine protein collection today. CMP, TSH , EKG reviewed. 2. BMI 40: weight goal of < 20 lbs. Caloric intake calculated to be 2000 for this . Will continue to monitor. 3. Recurrent miscarriage: APLS labs ordered in clinic. Patient has not done yet. Encouraged to get done. Discussed adding to blood work in AM. Mostly likely dx is uncontrolled DM. 4. : TVUS ordered today. Last sono only showed gestational sac. Trend beta hCG as needed. 5. hx of adjustment disorder: Continue to monitor for pio depression. 6. ppx: Continue PNV and folic acid for neuro tube defects. SCDs for DVT ppx. Will need ASA at 12.0 wks for preE ppx. Fide
[2019-07-19] MEDS ORDERED: Folic Acid 1 MG TAB PO SCH (09:15)
[2019-07-19] MEDS: NPH, Human Insulin Isophane 300 UNIT/3 ML VIAL SC SCH (09:27)
[2019-07-19] MEDS ORDERED: Ondansetron ODT 8 MG TAB SL PRN (09:44)
[2019-07-19] MEDS ORDERED: Ondansetron PF 4 MG/2 ML Vial IVP PRN (09:44)
[2019-07-19] MEDS ORDERED: Docusate 100 MG CAP PO PRN (09:44)
[2019-07-19] MEDS ORDERED: Polyethylene Glycol 3350 17 GM Packet PO PRN (09:44)
[2019-07-19] MEDS: Prenatal Vitamin 1 TAB PO SCH (10:03)
[2019-07-19] MEDS ORDERED: HumaLOG 300 UNITS/3 ML VIAL SC PRN (10:33)
--- NOTE | 2019-07-19 11:50 | ULT ---
Exam: Transabdominal and endovaginal pelvic ultrasound HISTORY:Evaluate gestational age COMPARISON:07/11/2019 TECHNIQUE: Transabdominal and endovaginal imaging of the pelvis is performed. Ovaries are interrogate d with grayscale, color flow, Doppler imaging and spectral wave form analysis FINDINGS: Uterus: No myometrial masses. Uterus measurin.1 x 8.0 x 4.6 cm. Endometrium: There is a gestational sac, yolk sac and pole. Neola-rump length is 0.62 cm, corre sponding to gestational age of 6 weeks 3 days. heart tones: 122 bpm Subchorionic hemorrhage: None. Free fluid: None Right ovary: Normal echotexture Right ovary measurement: 2.0 x 3.6 x 2.2 cm Left ovary: Normal echotexture. Left ovary measurements: 3.5 x 1.3 x 2.6 cm Ovarian Doppler: There is vascular flow to the left and right ovary. IMPRESSION: Currently, there is a single intrauterine gestation with heart tones. Gestational a ge by crown-rump length is 6 weeks 3 days. Estimated delivery date is 03/09/2020. pole and yolk sac were not appreciated on the previous exam.
[2019-07-19] MEDS: HumaLOG 300 UNITS/3 ML VIAL SC PRN ×2 (15:09→21:41)
[2019-07-19] MEDS ORDERED: Sodium Chloride 0.9% 10 ML ONE (21:15)
[2019-07-20] MEDS: HumaLOG 300 UNITS/3 ML VIAL SC PRN ×4 (06:34→21:14)
[2019-07-20] MEDS ORDERED: HumaLOG 300 UNITS/3 ML VIAL SC SCH ×4 (08:00→12:06)
[2019-07-20] MEDS: Folic Acid 1 MG TAB PO SCH (08:20)
[2019-07-20] MEDS: pyridOXINE 50 MG (B6) TAB PO SCH ×3 (08:20→21:18)
[2019-07-20] MEDS: Prenatal Vitamin 1 TAB PO SCH (08:20)
[2019-07-20] MEDS: NPH, Human Insulin Isophane 300 UNIT/3 ML VIAL SC SCH (08:22)
[2019-07-20] MEDS ORDERED: NPH, Human Insulin Isophane 300 UNIT/3 ML VIAL SC SCH ×2 (08:36→08:37)
[2019-07-20] MEDS ORDERED: FLU VACC QS2019-20(6MOS UP)/PF 60 MCG/0.5 ML SYRINGE IM ONE (09:00)
--- NOTE | 2019-07-20 09:40 | PDOC.OBAPN ---
R OB AP PN: Sub - Interval History Hospital Day: 2 Chief Complaint: uncontrolled pre GDM Indentification: at 6.5 here for uncontrolled preGDM Interval History: No concerns today. Denies polyuria, polydipsia, VB/VD/CTX/LOF R OB AP PN: Obj - Maternal Vital signs: BP: 103/56 HR: 98 RR: 18 Tmax: 98.5 Pox: 98% on RA Wt: 89kg - Urine output I&O: 07/19/19 07/20/19 07/21/19 06:59 06:59 06:59 Intake Total 400 Output Total 2100 Balance -1700 R OB AP PN: Exam - Physical Exam General: NAD, awake, alert and oriented HEENT: normocephalic and atraumatic, EOMI, MMM, conjunctiva clear Neck: trachea midline Heart: RRR, normal S1/S2 General: CTAB, no respiratory distress, good air movement Abdomen: soft, non-tender Skin: no rash, good tugor, no jaundice Lymphatic: no unusual bruising or bleeding R OB AP PN: Data - Labs Lab results: Laboratory Results - last 24 hr 07/19/19 07/19/19 07/19/19 11:49 14:58 21:04 POC Glucose 148 H 212 H 165 H 07/20/19 06:10 POC Glucose 142 H R OB AP PN: A/P - Problem List (1) Pregestational diabetes mellitus, modified White class B Current Visit: Yes Status: Acute Code(s): O24.319 - UNSP PRE-EXISTING DIABETES IN , UNSP TRIMESTER (2) History of spontaneous , currently Current Visit: Yes Status: Acute Code(s): O09.299 - SUPRVSN OF PREG W POOR REPRODCTV OR OBSTET HISTORY, UNSP TRI (3) Current Visit: No Status: Acute Disposition: at 6.5 wks by 6.4wk eusebia (GUILLERMO 03/10/20) here for uncontrolled pregestational DM, class white B 1. sIUP -GUILLERMO confirmed dating of 03/10/20 -Continue PNV 2. Uncontrolled preGDM -A1c 10.5 -Hyperglycemia improved but still not at goal. Will adjust regimen to following : * qAM: 38u NPH + 18u Lispro * qPM: 15u Lispro * qHS: 14u NPH -After discussion of unknown metformin teratogenic effects, will hold off and do insulin for now -High dose folic acid + pNV -24 hr protein collection still in process 3. Prolonged QTc -490ms (nml <460ms). -Likely from previous zofran use, now on diclegis -Will repeat today, pt asx 4. Hx of adjustment disorder with depressed mood -Reports doing well -Denies SI/HI -Declines restarting zoloft 5. Recurrent SABs -Hx of SAB x3 -Given outpt orders for APLS workup labs, will see if can obtain here in hospital if not extensive billing charge 6. N/V in -Diclegis Dvt ppx: SCDs Discussed with Dr. Sanders <Maria Luisa Sanders - Last Filed: 07/19/19 10:22> Addendum - Attending Discussion: Date/Time: 07/20/19938 This H&P was discussed with [] and [] who agree with the above documentation and plan. Addendum - Attending - Attending Attestation Date/Time: 07/20/19923 I personally evaluated the patient and discussed the management with Dr. Dent I agree with the History, Examination, Assessment and Plan documented above with any addition or exceptions noted below. HD#2 Patient admitted for hyperglycemia in with recurrent miscarriages due to uncontrolled DM. 1. Uncontrolled DM, likely class B: 24 hour protein pending. To be completed later today. Glucose still not at goal. Will increase to 40/20 AM and adjust pm dosing as needed. EKG reviewed. 2. BMI 40: weight goal of < 20 lbs. Caloric intake calculated to be 2000 for this . Will continue to monitor. 3. Recurrent miscarriage: APLS labs ordered in clinic. Patient has not done yet. Encouraged to get done. Mostly likely dx is uncontrolled DM. 4. sIUP: TVUS reviewed. GUILLERMO now 03/10/20. IOB labs WNL. 5. hx of adjustment disorder: Continue to monitor for pio depression. Previously on SSRI. 6. ppx: Continue PNV and folic acid for neuro tube defects. SCDs for DVT ppx. Will need ASA at 12.0 wks for preE ppx. 7. prolonged QT: Repeat EKG. If still prolonged check electrolytes. Monitor use of Zofran. Likely home tomorrow. Patient to continue to give her own injections. Will have family member fruit picker machine operator medications prior to d/c. Fide
[2019-07-20 11:59] LABS: Urine Total Volume 1700 mL (600-1600)
[2019-07-20 12:43] LABS: Protein, Urine Less than 10 mg/dL (1-14)
[2019-07-20] MEDS: Doxylamine 25 MG TAB PO SCH (21:19)
--- NOTE | 2019-07-21 08:17 | PDOC.OBAPN ---
FMR OB AP PN: Sub - Interval History Hospital Day: 3 Chief Complaint: uncontrolled preGDM Indentification: at 6.5 wks by 6.3 wk eusebia here for uncontrolled preGDM Interval History: Doing well this AM, no concerns, no polyuria/polydipsia, no VB /VD/CTX FMR OB AP PN: Obj - Maternal Vital signs: BP: [] HR: [] RR: [] Tmax: [] Pox: []% on [] Wt: [] - Urine output I&O: 07/20/19 07/21/19 07/22/19 06:59 06:59 06:59 Intake Total 400 Output Total 2100 Balance -1700 FMR OB AP PN: Exam - Physical Exam General: NAD, awake, alert and oriented HEENT: normocephalic and atraumatic, EOMI, MMM, conjunctiva clear Heart: RRR, normal S1/S2, no murmurs/rubs/gallops General: CTAB, no respiratory distress, good air movement Abdomen: soft Skin: no rash, good tugor Lymphatic: no unusual bruising or bleeding, no purpura FMR OB AP PN: Data - Labs Lab results: Laboratory Results - last 24 hr 07/20/19 07/20/19 07/20/19 10:30 10:59 17:20 POC Glucose 148 H 182 H Urine Protein Less than 10 Ur Collection Duration 24 Urine Total Volume 1700 H U Tot Protein 24h, Calc TNP 07/20/19 07/21/19 21:01 06:00 POC Glucose 170 H 131 H Urine Protein Ur Collection Duration Urine Total Volume U Tot Protein 24h, Calc FMR OB AP PN: A/P - Problem List (1) Pregestational diabetes mellitus, modified White class B Current Visit: Yes Status: Acute Code(s): O24.319 - UNSP PRE-EXISTING DIABETES IN , UNSP TRIMESTER (2) History of spontaneous , currently Current Visit: Yes Status: Acute Code(s): O09.299 - SUPRVSN OF PREG W POOR REPRODCTV OR OBSTET HISTORY, UNSP TRI (3) Current Visit: No Status: Acute Discussion: Date/Time: 07/21/19 0815 at 6.5 wks by 6.5wk eusebia (GUILLERMO 03/10/20) here for uncontrolled pregestational DM, class white B 1. sIUP -GUILLERMO confirmed dating of 03/10/20 -Continue PNV 2. Uncontrolled preGDM -A1c 10.5 -Hyperglycemia improved but still not at goal. Will adjust regimen to following : * qAM: 40u NPH + 20u Lispro * qPM: 16u Lispro * qHS: 20u NPH -After discussion of unknown metformin teratogenic effects, will hold off and do insulin for now -High dose folic acid + PNV -24 hr protein negative 3. Prolonged QTc, improved -461ms -Likely from previous zofran use, now on diclegis -Will repeat today, pt asx 4. Hx of adjustment disorder with depressed mood -Reports doing well -Denies SI/HI -Declines restarting zoloft 5. Recurrent SABs -Hx of SAB x3 -Pt plans to obtain today upon discharge 6. N/V in -Diclegis This H&P was discussed with Dr. Sanders who agree with the above documentation and plan.
[2019-07-21] MEDS ORDERED: NPH, Human Insulin Isophane 300 UNIT/3 ML VIAL SC SCH ×2 (09:00→21:00)
[2019-07-21] MEDS: pyridOXINE 50 MG (B6) TAB PO SCH ×3 (09:18→21:19)
[2019-07-21] MEDS: Prenatal Vitamin 1 TAB PO SCH (09:19)
[2019-07-21] MEDS: Folic Acid 1 MG TAB PO SCH (09:19)
[2019-07-21] MEDS: HumaLOG 300 UNITS/3 ML VIAL SC PRN ×3 (11:20→21:21)
[2019-07-21] MEDS ORDERED: HumaLOG 300 UNITS/3 ML VIAL SC SCH (17:00)
[2019-07-21] MEDS: Doxylamine 25 MG TAB PO SCH (21:19)
[2019-07-22] MEDS ORDERED: HumaLOG 300 UNITS/3 ML VIAL SC SCH ×3 (08:00→17:00)
--- NOTE | 2019-07-22 08:25 | PDOC.OBAPN ---
FMR OB AP PN: Sub - Interval History Hospital Day: 4 Chief Complaint: uncontrolled preGDM Indentification: at 6.6 wks here for above Interval History: Denies polyuria, polydipsia, vb/vd/ctx FMR OB AP PN: Obj - Maternal Vital signs: BP: [] HR: [] RR: [] Tmax: [] Pox: []% on [] Wt: [] FMR OB AP PN: Exam - Physical Exam General: NAD, awake, alert and oriented HEENT: normocephalic and atraumatic, EOMI, MMM, conjunctiva clear Neck: FROM, trachea midline Heart: RRR, normal S1/S2 General: CTAB, no respiratory distress Abdomen: soft Lymphatic: no purpura, no petechia Psychiatric: intact recent and remote memory FMR OB AP PN: Data - Labs Lab results: Laboratory Results - last 24 hr 07/21/19 07/21/19 07/21/19 11:07 15:43 21:06 POC Glucose 170 H 176 H 234 H 07/22/19 06:08 POC Glucose 136 H FMR OB AP PN: A/P - Problem List (1) Pregestational diabetes mellitus, modified White class B Current Visit: Yes Status: Acute Code(s): O24.319 - UNSP PRE-EXISTING DIABETES IN , UNSP TRIMESTER (2) History of spontaneous , currently Current Visit: Yes Status: Acute Code(s): O09.299 - SUPRVSN OF PREG W POOR REPRODCTV OR OBSTET HISTORY, UNSP TRI (3) Current Visit: No Status: Acute Discussion: Date/Time: 07/22/19 0823 at 6.6 wks by 6.5wk eusebia (GUILLERMO 03/10/20) here for uncontrolled pregestational DM, class white B 1. sIUP -GUILLERMO confirmed dating of 03/10/20 -Continue PNV 2. Uncontrolled preGDM -A1c 10.5 -Hyperglycemia improved but still not at goal. Will adjust regimen to following : * qAM: 44u NPH + 22u Lispro * qPM: 18u Lispro * qHS: 22u NPH * -After discussion of unknown metformin teratogenic effects, will hold off and do insulin for now -High dose folic acid + PNV -24 hr protein <10 -Dietary to come return to discuss counting calories 3. Prolonged QTc, improved -461ms -Likely from previous zofran use, now on diclegis 4. Hx of adjustment disorder with depressed mood -Reports doing well -Denies SI/HI -Declines restarting zoloft 5. Recurrent SABs -Hx of SAB x3 -Pt plans to obtain today upon discharge 6. N/V in -Diclegis This H&P was discussed with Dr. Weiner who agree with the above documentation and plan.
[2019-07-22] MEDS ORDERED: NPH, Human Insulin Isophane 300 UNIT/3 ML VIAL SC SCH ×5 (09:00→21:00)
[2019-07-22] MEDS: Prenatal Vitamin 1 TAB PO SCH (09:39)
[2019-07-22] MEDS: pyridOXINE 50 MG (B6) TAB PO SCH ×3 (09:39→21:03)
[2019-07-22] MEDS: Folic Acid 1 MG TAB PO SCH (09:39)
[2019-07-22] MEDS: Doxylamine 25 MG TAB PO SCH (21:03)
[2019-07-23] MEDS ORDERED: NPH, Human Insulin Isophane 300 UNIT/3 ML VIAL SC SCH (07:41)
--- NOTE | 2019-07-23 07:43 | PDOC.OBAPN ---
FMR OB AP PN: Sub - Interval History Chief Complaint: No complaint offered Interval History: Denies any fever, chills. Denies any N/V/D/C. Denies any hypoglycemia FMR OB AP PN: Obj - Maternal Vital signs: BP: [103/55] HR: [90] RR: [18] Tmax: [98.5] Pox: [98]% on [RA] - Urine output I&O: 2100 FMR OB AP PN: Exam - Physical Exam General: NAD, awake, alert and oriented HEENT: normocephalic and atraumatic, PERRLA, grossly normal vision, grossly normal hearing Neck: supple, FROM Heart: RRR, normal S1/S2, no murmurs/rubs/gallops, pulses present, no edema General: CTAB, no respiratory distress, good air movement, no rales/rhonchi, no wheezing Abdomen: soft, gravid, non-tender, bowel sound present, no masses, no hernias Musculoskeletal: pulses present, FROM in all four extremities Neurological: sensation to pain,touch and proprioception grossly normal Skin: no rash, good tugor, capillary refill <2 seconds Psychiatric: intact recent and remote memory, good judgement and insight, normal mood and affect FMR OB AP PN: Data - Labs Lab results: Laboratory Results - last 24 hr 07/22/19 07/22/19 07/22/19 11:59 16:09 20:24 POC Glucose 121 H 128 H 117 H 07/23/19 06:12 POC Glucose 107 R OB AP PN: A/P - Problem List (1) History of spontaneous , currently Current Visit: Yes Status: Acute Code(s): O09.299 - SUPRVSN OF PREG W POOR REPRODCTV OR OBSTET HISTORY, UNSP TRI (2) Pregestational diabetes mellitus, modified White class B Current Visit: Yes Status: Acute Code(s): O24.319 - UNSP PRE-EXISTING DIABETES IN , UNSP TRIMESTER (3) History of chronic hypertension Current Visit: No Status: Acute Code(s): Z86.79 - PERSONAL HISTORY OF OTHER DISEASES OF THE CIRCULATORY SYSTEM (4) Hyperglycemia due to type 2 diabetes mellitus Current Visit: No Status: Acute Code(s): E11.65 - TYPE 2 DIABETES MELLITUS WITH HYPERGLYCEMIA Qualifiers: Diabetes mellitus penitentiary insulin use: with terminal manager use Qualified Code( s): E11.65 - Type 2 diabetes mellitus with hyperglycemia; Z79.4 - FPC ( current) use of insulin Comment: -poorly controlled diabetes secondary to medical noncompliance -HbA1C 12 -presented to ER yesterday with blood sugar >500, likely in HHS -responded well to IV/SC insulin -currently running in 300s -morning basal dose increased to 30 units and evening dose increased to 20 units -continue 1/2NS@200 mls/hr (5) Hypertension Current Visit: No Status: Acute Code(s): I10 - ESSENTIAL (PRIMARY) HYPERTENSION Comment: -has been stable since admission -continue home Lisinopril 2.5mg (6) Current Visit: No Status: Acute Disposition: at 6.6 wks by 6.5wk eusebia (GUILLERMO 03/10/20) here for uncontrolled pregestational DM, class white B 1. sIUP -GUILLERMO confirmed dating of 03/10/20 -Continue PNV 2. Uncontrolled preGDM -A1c 10.5 -Hyperglycemia improved but still not at goal. Pt fasting and PP glucose all still elevated. Very close to cutoff goals. * qAM: 46u NPH + 22u Lispro * qPM: 22u Lispro * qHS: 26u NPH -After discussion of unknown metformin teratogenic effects, will hold off and do insulin for now -High dose folic acid + PNV -24 hr protein <10 -Dietary to come return to discuss counting calories 3. Prolonged QTc, improved -461ms -Likely from previous zofran use, now on diclegis 4. Hx of adjustment disorder with depressed mood -Reports doing well -Denies SI/HI -Declines restarting zoloft 5. Recurrent SABs -Hx of SAB x3 6. N/V in -Improved at this time -Diclegis Discussion: Date/Time: 07/23/19 0741 This H&P was discussed with [] and [] who agree with the above documentation and plan. Addendum - Attending - Attending Attestation Date/Time: 07/23/19 0909 I personally evaluated the patient and discussed the management with Dr. Carbone I agree with the History, Examination, Assessment and Plan documented above with any addition or exceptions noted below. increase NPH to 46U qAM and 26U qHS. Increased lispro to 22U qPM. Am lispro keep at 24 as she did not receive this yesterday. Will see how glucoses respond to changes. Possible D/C this afternoon but likely tomorrow.
[2019-07-23] MEDS ORDERED: HumaLOG 300 UNITS/3 ML VIAL SC SCH (08:00)
[2019-07-23] MEDS: NPH, Human Insulin Isophane 300 UNIT/3 ML VIAL SC SCH (08:43)
[2019-07-23] MEDS: Prenatal Vitamin 1 TAB PO SCH (08:43)
[2019-07-23] MEDS: pyridOXINE 50 MG (B6) TAB PO SCH ×3 (08:44→21:09)
[2019-07-23] MEDS: Folic Acid 1 MG TAB PO SCH (08:44)
[2019-07-23] MEDS: HumaLOG 300 UNITS/3 ML VIAL SC PRN (16:37)
[2019-07-23] MEDS: HumaLOG 300 UNITS/3 ML VIAL SC SCH (17:45)
[2019-07-23] MEDS: Doxylamine 25 MG TAB PO SCH (21:11)
[2019-07-24] MEDS ORDERED: NPH, Human Insulin Isophane 300 UNIT/3 ML VIAL SC SCH ×2 (09:19)
[2019-07-24] MEDS: Prenatal Vitamin 1 TAB PO SCH (09:44)
[2019-07-24] MEDS: Folic Acid 1 MG TAB PO SCH (09:44)
[2019-07-24] MEDS: HumaLOG 300 UNITS/3 ML VIAL SC SCH ×2 (09:44→17:49)
[2019-07-24] MEDS: pyridOXINE 50 MG (B6) TAB PO SCH ×3 (09:45→20:16)
--- NOTE | 2019-07-24 11:06 | PDOC.OBAPN ---
FMR OB AP PN: Sub - Interval History Hospital Day: 7 Chief Complaint: No complaint offerred Indentification: Denies any n/v/d/c. Interval History: Pt reports doing well. Denies fever/chills. Denies hyper/ hypoglycemic event FMR OB AP PN: Obj - Maternal Vital signs: BP: [109/55] HR: [94] RR: [18] Tmax: [98.4] Pox: [98]% on [RA] Wt: [89kg] FMR OB AP PN: Exam - Physical Exam General: NAD, awake, alert and oriented HEENT: normocephalic and atraumatic, grossly normal vision, grossly normal hearing Neck: supple, FROM Heart: RRR, normal S1/S2, no murmurs/rubs/gallops, pulses present, no edema General: CTAB, no respiratory distress, good air movement, no rales/rhonchi, no wheezing Abdomen: soft, gravid, non-tender, bowel sound present, no masses Musculoskeletal: normal gait and station, pulses present, FROM in all four extremities Neurological: sensation to pain,touch and proprioception grossly normal Skin: no rash, capillary refill <2 seconds Psychiatric: intact recent and remote memory, good judgement and insight, normal mood and affect FMR OB AP PN: Data - Labs Lab results: Laboratory Results - last 24 hr 07/23/19 07/23/19 07/23/19 11:14 15:15 20:22 POC Glucose 103 179 H 101 07/24/19 06:12 POC Glucose 104 FMR OB AP PN: A/P - Problem List (1) History of spontaneous , currently Current Visit: Yes Status: Acute Code(s): O09.299 - SUPRVSN OF PREG W POOR REPRODCTV OR OBSTET HISTORY, UNSP TRI (2) Pregestational diabetes mellitus, modified White class B Current Visit: Yes Status: Acute Code(s): O24.319 - UNSP PRE-EXISTING DIABETES IN , UNSP TRIMESTER (3) History of chronic hypertension Current Visit: No Status: Acute Code(s): Z86.79 - PERSONAL HISTORY OF OTHER DISEASES OF THE CIRCULATORY SYSTEM (4) Hyperglycemia due to type 2 diabetes mellitus Current Visit: No Status: Acute Code(s): E11.65 - TYPE 2 DIABETES MELLITUS WITH HYPERGLYCEMIA Qualifiers: Diabetes mellitus mcfp insulin use: with mcfp use Qualified Code( s): E11.65 - Type 2 diabetes mellitus with hyperglycemia; 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 Comment: -poorly controlled diabetes secondary to medical noncompliance -HbA1C 12 -presented to ER yesterday with blood sugar >500, likely in HHS -responded well to IV/SC insulin -currently running in 300s -morning basal dose increased to 30 units and evening dose increased to 20 units -continue 1/2NS@200 mls/hr (5) Hypertension Current Visit: No Status: Acute Code(s): I10 - ESSENTIAL (PRIMARY) HYPERTENSION Comment: -has been stable since admission -continue home Lisinopril 2.5mg (6) Current Visit: No Status: Acute Disposition: at 7.1 wks by 6.5wk eusebia (GUILLERMO 03/10/20) here for uncontrolled pregestational DM, class white B 1. sIUP -GUILLERMO confirmed dating of 03/10/20 -Continue PNV 2. Uncontrolled preGDM -A1c 10.5 -Hyperglycemia improved but still not at goal. Pt fasting again elevated this morning. 1/3 2 hr PP elevated yesterday. It was 179 as well. * qAM: 50u NPH + 22u Lispro * qPM: 22u Lispro * qHS: 30u NPH -After discussion of unknown metformin teratogenic effects, will hold off and do insulin for now -High dose folic acid + PNV -24 hr protein <10 -Dietary consulted- follow recs 3. Prolonged QTc, improved -461ms -Likely from previous zofran use, now on diclegis 4. Hx of adjustment disorder with depressed mood -Reports doing well -Denies SI/HI -Declines restarting zoloft 5. Recurrent SABs -Hx of SAB x3 6. N/V in , -Improved at this time Dispo: Pt had elevated fasting and one 2 hr PP sugar was very elevated. We adjusted her NPH am and pm dosing. Will watch sugars today. Do not want severly elevated or may have to continue to monitor. Possibly d/c home later today if sugars are reasonable. Discussion: Date/Time: 07/24/19 1104 This H&P was discussed with [] and [] who agree with the above documentation and plan. Addendum - Attending - Attending Attestation Date/Time: 07/24/19 6630 I personally evaluated the patient and discussed the management with Dr. Malcolm I agree with the History, Examination, Assessment and Plan documented above with any addition or exceptions noted below. fasting still elevated this morning. Had 1 elevated PP glucose yesterday and have made adjustments to PM NPH and AM lispro. Patient has never been on lisinopril this hospital stay and will remain off ACEI/ARB during . BP WNL. Will monitor today and if PP controlled will d/c home. Discussed adjustment of insulin regimen with patient and will place instructions in d/c paperwork. Home insulin and monitoring arranged.
[2019-07-24] MEDS: NPH, Human Insulin Isophane 300 UNIT/3 ML VIAL SC SCH (15:32)
[2019-07-24] MEDS: Doxylamine 25 MG TAB PO SCH (20:15)
[2019-07-24] MEDS: HumaLOG 300 UNITS/3 ML VIAL SC PRN (20:18)
[2019-07-25 07:50] VITALS: BP 104/56; TEMP 98.8
--- NOTE | 2019-07-25 08:23 | PDOC.OBAPN ---
R OB AP PN: Sub - Interval History Hospital Day: 7 Chief Complaint: uncontrolled pre gdm Indentification: at 7.3 here for uncontrolled preGDM Interval History: No hyper/hypoglycemic sxs, no VB/VD/CTX FMR OB AP PN: Obj - Maternal Vital signs: VSS at 07:49 per charting R OB AP PN: Exam - Physical Exam General: NAD, awake, alert and oriented HEENT: normocephalic and atraumatic, EOMI, MMM, conjunctiva clear Neck: supple, FROM, trachea midline Heart: RRR, normal S1/S2 General: CTAB, no respiratory distress Abdomen: soft Lymphatic: no unusual bruising or bleeding, no purpura Psychiatric: intact recent and remote memory, good judgement and insight R OB AP PN: Data - Labs Lab results: Laboratory Results - last 24 hr 07/24/19 07/24/19 07/24/19 11:54 15:20 20:11 POC Glucose 109 139 H 161 H 07/25/19 06:34 POC Glucose 105 R OB AP PN: A/P - Problem List (1) Pregestational diabetes mellitus, modified White class B Current Visit: Yes Status: Acute Code(s): O24.319 - UNSP PRE-EXISTING DIABETES IN , UNSP TRIMESTER (2) History of spontaneous , currently Current Visit: Yes Status: Acute Code(s): O09.299 - SUPRVSN OF PREG W POOR REPRODCTV OR OBSTET HISTORY, UNSP TRI (3) Current Visit: No Status: Acute Discussion: Date/Time: 07/25/19 0822 at 7.2 wks by 6.5wk eusebia (GUILLERMO 03/10/20) here for uncontrolled pregestational DM, class white B 1. sIUP -GUILLERMO confirmed dating of 03/10/20 -Continue PNV 2. Uncontrolled preGDM -A1c 10.5 -Hyperglycemia improved but still not at goal. Pt fasting again elevated this morning. 1/3 2 hr PP elevated yesterday. It was 179 as well. * qAM: 50u NPH + 30u Lispro * qPM: 22u Lispro * qHS: 30u NPH -After discussion of unknown metformin teratogenic effects, will hold off and do insulin for now -High dose folic acid + PNV -24 hr protein <10 -Dietary consulted- follow recs 3. Prolonged QTc, improved -461ms -Likely from previous zofran use, now on diclegis 4. Hx of adjustment disorder with depressed mood -Reports doing well -Denies SI/HI -Declines restarting zoloft 5. Recurrent SABs -Hx of SAB x3 6. N/V in , -Improved at this time Dispo: Much improved glucoses. Will need continuous titration and good stable caloric intake of meals. D/C pending day time sugars. Discussion: Date/Time: 07/24/19 1105 Addendum - Attending - Attending Attestation Date/Time: 07/25/19 1054 I personally evaluated the patient and discussed the management with Dr. Dent I agree with the History, Examination, Assessment and Plan documented above with any addition or exceptions noted below. Changes made to insulin today. If glucose still high today, will switch to lantus and humalog this evening. d/c pending glucose today.
[2019-07-25] MEDS ORDERED: HumaLOG 300 UNITS/3 ML VIAL SC SCH ×2 (08:31)
[2019-07-25] MEDS ORDERED: NPH, Human Insulin Isophane 300 UNIT/3 ML VIAL SC SCH ×2 (08:32→09:00)
[2019-07-25] MEDS: Prenatal Vitamin 1 TAB PO SCH (09:14)
[2019-07-25] MEDS: pyridOXINE 50 MG (B6) TAB PO SCH (09:14)
[2019-07-25] MEDS: Folic Acid 1 MG TAB PO SCH (09:14)
[2019-07-25] MEDS: HumaLOG 300 UNITS/3 ML VIAL SC SCH (09:30)
--- NOTE | 2019-07-26 13:48 | DIS ---
DATE OF ADMISSION: 07/18/2019 DATE OF DISCHARGE: 07/25/2019 ADMITTING ATTENDING: Dr. Ami Watson. DISCHARGE ATTENDING: Dr. Sylvain Rick. RESIDENT: Kath Dent, PGY2. PROCEDURES AND IMAGING: Pelvic ultrasound on 07/19/2019: SIUP with gestational age by crown-rump length consistent with 6 weeks and 3 days. GUILLERMO is 03/10/2020. PRIMARY DIAGNOSES: 1. Uncontrolled pregestational diabetes, likely class B. 2. History of adjustment disorder with depressed mood. 3. SAB X3, likely due to uncontrolled pre-gestational diabetes mellitus. 4. Nausea and vomiting of . 5. Prolonged QTc 2/2 zofran use -resolved. 6. Single intrauterine , viable DISCHARGE MEDICATIONS: 1. NPH 55 units q.a.m. and 35 units q.p.m. 2. Lispro 30 units q.a.m. for breakfast, 27 units q.p.m. with dinner. 3. vitamin. 4. High-dose folic acid. 5. Diclegis. 6. Insulin supplies. HISTORY OF PRESENT ILLNESS/HOSPITAL COURSE: Deidra Khoury is a 19-year-old G4, P0030 at 6.2 wga by 6.3wk eusebia admitted for insulin titration of her uncontrolled pregestational type 2 diabetes. She was a direct admit from clinic when routine labs showed A1c 10.8%. Hospital repeat was 10.5% She was started on a <2000 Calorie/day diet and the following insulin regimen: 1. NPH + Humalog (mixed together) at breakfast 2. Humalog at dinner 3. NPH at 9pm. Prior to admission and she had been on max metformin. Discussion was had and since she was uncontrolled on metformin and d/t the unknown risks, we discontinued the medication. She was started on high dose folic acid to help with neural tube development. Dietary met with her several times for education. She was able to demonstrate she could self administer her insulin and check her sugars. On discharge, she had glucoses <165, most difficult has been with postprandial lunch & dinner titrations. It is possible that if we cannot get good control outpatient then switching to Lantus/Humalog would be better fitted. Baseline labs showed a 24-hour protein collection showed < 10 mg/dL of protein. Prolonged QTC: 490ms, asx. Likely due to daily zofran use prior to admission. She was switched to diclegis with repeat EKG showing normalization of QTc. Hx SAB x3: Pt has outpt APLS labs she plans on having completed this week so we did not redraw blood for this. FOLLOW UP PLAN: Will need twice a week office visits until better controlled. Ppx ASA at 12 wks. Continue high dose folic acid. Consider switching Lantus/ Humalog if uncontrolled on NPH/Humalog combo. DISPOSITION: Stable. DISCHARGE INSTRUCTIONS: 1. Location: Home. 2. Diet: Carb-consistent, less than 2000 calories a day. 3. Activity: Two 20-minute walks a day. 4. Followup: Please follow up with clinic for your appointment this . 5. Please continue to record your sugars and schedule twice a week appointments to ensure good monitoring. 6. Please call if sugars drop below 70 or consistently run above 140s. 7. Follow up on [facility] labs Job ID: [id number]
== END 2019-07-25 18:00 | disposition home or self-care (01) | DRG 833 ==
LOC: 3SW 18:25
PROVIDERS: ADMIT Student in an Organized Health Care Education/Training Program; ATTEND Student in an Organized Health Care Education/Training Program
DX: O24.111 Pre-existing type 2 diabetes mellitus, in pregnancy, first trimester (principal); O99.341 Other mental disorders complicating pregnancy, first trimester; F43.21 Adjustment disorder with depressed mood; E11.65 Type 2 diabetes mellitus with hyperglycemia; T45.0X5A Adverse effect of antiallergic and antiemetic drugs, initial encounter; Z3A.01 Less than 8 weeks gestation of pregnancy; Z91.14 Patient's other noncompliance with medication regimen; R94.31 Abnormal electrocardiogram [ECG] [EKG]; Z79.4 Long term (current) use of insulin; Z87.891 Personal history of nicotine dependence
CPT/HCPCS: 36415; 36416; 76856; 80053; 83036; 84156; 85025; 93005; 93010; J1815

== ENCOUNTER 2019-12-29 05:26 | Day surgery (SDC) | payer OTHER ==
[2019-12-29 06:07] VITALS: BMI 44.2
[2019-12-29] MEDS ORDERED: hydrALAZINE 20 MG/ML VIAL SLOW IVP PRN (06:59)
--- NOTE | 2019-12-29 07:33 | PDOC.FPROB ---
FMR OB H&P: HPI - History of Present Illness Chief Complaint: abdominal cramps History of Present Illness: 19 y/o with PMHx uncontrolled T2DM and SABs <10 weeks presents for lower abdominal cramping, onset around midnight last night. Reports they feel similar to period cramps, and became worse around 0430 this AM. Since arrival on L&D, her symptoms have improved. She denies any bleeding, LOF, discharge and has had good movement. She denies any urinary sx including dysuria, hematuria. She also denies any N/V/D/C, last BM around 2330 last night. Reports she has been taking insulin, PNV, folic acid, and baby ASA at home. Blood sugar has been better controlled, 110 after dinner last night. She has had intercourse within the past 48 hours. Primary Care Physician: Dr. Sanders, [facility] FMR OB H&P: Current - Care : 5 Para: 0040 Gestational age: 29.5 Due date: 03/10/2020 Dating Criteria: 1st trimester US, per patient Course/Complications: Hx of T2DM, not gestational, requiring hospitalization in 07/2019 for uncontrolled blood sugar. - OB Labs Blood type: unknown RH: unknown Antibody Screen: unknown HIV: unknown RPR: unknown HepBsAg: unknown Quad screen: unknown Gonorrhea: unknown Chlamydia: unknown FMR OB H&P: History - Past Medical History PMH: Type 2 DM, not gestational, poorly controlled - OB History OB History: hx SAB x4 at <10wk - Surgical History Sx History: Denies. - Social History Social History: Former smoker, denies in . Denies etoh, drug use. - Family History Family History: Reports maternal history of T2DM. Denies family hx of Down syndrome, congenital heart defects. FMR OB H&P: Medications - Current Home Medications: Medication Instructions Recorded Confirmed Type [place], Disposable [Easy Touch 1 each SC QID #120 dis.needle 12/23/18 Rx Hypodermic Needle] Vitamin 1 tab PO DAILY tab 12/24/18 07/18/19 Rx Blood Sugar Diagnostic [Glucose 1 each ASDIR #1 box 07/21/19 Rx Test Strip] Blood-Glucose Meter, Drum-Type 1 each ASDIR #1 kit 07/21/19 Rx [Accu-Chek Glucose Meter] Folic Acid [Folvite] 1 mg PO DAILY #30 tab 07/21/19 Rx Lancets [Ultra Fine Lancets] 1 each MC Q6HR #1 box 07/21/19 Rx Pyridoxine HCl (Vitamin B6) 25 mg PO QPM #30 tablet 07/21/19 Rx [Pyridoxine HCl] HumaLOG [HumaLOG Vial] 27 units SC QPM-WM 12/29/19 History HumaLOG [HumaLOG Vial] 37 units SC QAM- 12/29/19 History NPH, Human Insulin Isophane 37 unit SC QPM 12/29/19 History [HumuLIN N] NPH, Human Insulin Isophane 64 unit SC QAM 12/29/19 History [HumuLIN N] Allergies/Adverse Reactions: Allergies Allergy/AdvReac Type Severity Reaction Status Date / Time No Known Allergies Allergy Verified 12/29/19 05:58 FMR OB H&P: ROS - Review of Systems General: denies: fever/chills, night sweats Eyes: denies: vision changes ENT: denies: nasal congestion, sore throat Cardiovascular: denies: chest pain, edema Respiratory: denies: cough, congestion, shortness of breath Gastrointestinal: reports: abdominal pain, cramping. denies: nausea, vomiting, diarrhea, constipation Genitourinary (Female): denies: dysuria, hematuria, vaginal discharge, vaginal bleeding, contractions Musculoskeletal: denies: swelling Neurologic: denies: weakness Integumentary: denies: rash FMR OB H&P: Vital Signs - Maternal Vital signs: BP 101/55, HR 116, SpO2 99% on RA - Heart Tones Baseline: 150 Variability: moderate Acceleration: present Deceleration: variable (one variable, no other decels noted) [place] contractions every: no contractions FMR OB H&P: Physical Exam - Physical Exam General: NAD, awake, alert and oriented HEENT: normocephalic and atraumatic, PERRLA, EOMI, MMM, conjunctiva clear, no scleral icterus, grossly normal vision, grossly normal hearing, good dention Neck: supple, FROM, no LAD Heart: normal S1/S2, no murmurs/rubs/gallops, pulses present, no edema Deviation from normal: regular rhythm, tachycardia General: CTAB, no respiratory distress, good air movement, no rales/rhonchi, no wheezing, no retractions Abdomen: soft, gravid, non-tender, bowel sound present Musculoskeletal: pulses present, FROM in all four extremities Skin: no rash, no jaundice Lymphatic: no unusual bruising or bleeding, no purpura, no petechia, no LAD Psychiatric: intact recent and remote memory, good judgement and insight, normal mood and affect - Pelvic Exam SVE: not performed FMR OB H&P: A/P Disposition: sIUP, r/o labor in setting of abdominal cramps: -no bleeding/discharge/LOF, + movement -NST today reactive -will not collect FFN due to recent intercourse -VP3 negative -UA with >1000 glucose, +ketones; 1+ bacteria but 4-6 squam, likely contamination, will not treat -transvaginal US: cervix closed, 4.3 cm length; fundal placenta -GC/chlamydia pending T2DM: -hospitalization for uncontrolled glucose during in 07/2019 -treated with insulin during this -uncontrolled today, fasting BS 197 before AM insulin -AM insulin not administered due to issue with pharmacy, instructed patient to take home dose when she gets home and take glucose logs to appointment at [facility] tomorrow Hx SAB: -reports 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 Instructed to take glucose logs. Discussion: Date/Time: 12/29/19 2377 This H&P was discussed with Dr. Sierra and Dr. Rick who agree with the above documentation and plan. Addendum - Attending - Attending Attestation Date/Time: 12/29/19 1242 I personally evaluated the patient and discussed the management with Dr. Schneider I agree with the History, Examination, Assessment and Plan documented above with any addition or exceptions noted below.
[2019-12-29 07:50] LABS: Bilirubin Negative (Negative); Blood, Urine Negative (Negative); Clarity Clear (Clear); Glucose, Urine (Dipstick) Greater than 1000 mg/dL (Negative); Ketone, Urine 20 mg/dL (Negative); Leukocyte Negative Leu/uL (Negative); Nitrite Negative (Negative); Protein, Urine (Dipstick) Negative (Neg-Trace); RBC/HPF 0-3 HPF (0-3); Specific Gravity, Urine 1.037 (1.002-1.036); Urobilinogen Normal mg/dL (Less than 2); WBC/HPF 0-3 HPF (0-3)
[2019-12-29 07:51] LABS: Bacteria/HPF 1+ HPF (None Seen)
--- NOTE | 2019-12-29 08:24 | ULT ---
Obstetric sonogram Limited HISTORY: Third trimester gestation. Evaluate for cervical length. FINDINGS: Single intrauterine gestation in cephalic presentation. Grade 0 placenta is fundal without evidence of previa or option. Heart motion at 152 bpm. The cervix is closed and 4.3 cm.
[2019-12-29] MEDS ORDERED: Insulin Regular 300 UNITS/3 ML VIAL SC ONE (09:05)
[2019-12-29 20:10] LABS: Chlamydia by PCR Not Detected (NotDetected); GC by PCR Not Detected (NotDetected)
== END 2019-12-29 09:40 | disposition home or self-care (01) ==
LOC: L&D/OP 05:26
PROVIDERS: ATTEND Student in an Organized Health Care Education/Training Program
DX: O99.89 Other specified diseases and conditions complicating pregnancy, childbirth and the puerperium (principal); R10.30 Lower abdominal pain, unspecified; O24.113 Pre-existing type 2 diabetes mellitus, in pregnancy, third trimester; E11.9 Type 2 diabetes mellitus without complications; Z3A.29 29 weeks gestation of pregnancy; Z87.891 Personal history of nicotine dependence; Z79.82 Long term (current) use of aspirin; Z79.4 Long term (current) use of insulin
CPT/HCPCS: 36416; 76815; 81001; 87480; 87491; 87510; 87591; 87660

== ENCOUNTER 2020-02-02 11:40 | Day surgery (SDC) | payer MEDICAID, OTHER ==
[2020-02-02] MEDS ORDERED: hydrALAZINE 20 MG/ML VIAL SLOW IVP PRN (12:02)
--- NOTE | 2020-02-02 12:08 | PDOC.FPROB ---
FMR OB H&P: HPI - History of Present Illness Chief Complaint: elevated BP History of Present Illness: Pt is a 19 yo at 34.5 wga by a 6.3 wk sono with a PMH of chlamydia with negative SHEEBA and Class C Diabetes in who presented in clinic for BPP and was found to have elevated BPs. They were 144/79 with repeat of 142/80. She was also found to have 2+ edema in clinic, which she said has been present, along with facial swelling for the last week. She has no history of elevated BPs previously in or prior. She endorses good movement, no LOF, no vaginal bleeding, no contractions. Has occasional MOELLER. Denies vision changes, abdominal pain, CP, SOB. FMR OB H&P: Current - Care : 4 Para: 0 Gestational age: 34.5wga Due date: GUILLERMO 03/10/2020 Dating Criteria: 6.3 wk sono Course/Complications: Class 3 Diabetes in , on insulin Chlamydia earlier in which was treated with negative SHEEBA - OB Labs Blood type: O RH: positive Antibody Screen: negative HIV: negative RPR: negative HepBsAg: negative Rubella: immune Quad screen: negative (progenity negative) Gonorrhea: negative Chlamydia: negative Pap Smear: NILM A1c: 10.9>5.9>8.2 H&H: 11.6/35.1 Platelets: 201 Additional labs: Protein, urine 24 hr: 110mg/24h Protein, urine 14 mg/dl creatinine, urine 79.9 protein/creatinine 175 mg/g uric acid 5.3 mg/dl - Anatomy Survey Anatomy survey: grossly normal anatomy FMR OB H&P: History - Past Medical History PMH: Pre Type 2 diabetic. 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 - Family History Family History: extensive family hx of diabetes, HTN, CKD FMR OB H&P: Medications - Current Home Medications: Medication Instructions Recorded Confirmed Type Vitamin 1 tab PO DAILY tab 12/24/18 02/02/20 Rx Folic Acid [Folvite] 1 mg PO DAILY #30 tab 07/21/19 02/02/20 Rx HumaLOG [HumaLOG Vial] 27 units SC QPM-WM 12/29/19 02/02/20 History HumaLOG [HumaLOG Vial] 37 units SC QAM-WM 12/29/19 02/02/20 History NPH, Human Insulin Isophane 37 unit SC QPM 12/29/19 02/02/20 History [HumuLIN N] NPH, Human Insulin Isophane 64 unit SC QAM 12/29/19 02/02/20 History [HumuLIN N] Aspirin [Ecotrin Low Strength] 1 tab PO DAILY 02/02/20 02/02/20 History Allergies/Adverse Reactions: Allergies Allergy/AdvReac Type Severity Reaction Status Date / Time No Known Allergies Allergy Verified 12/29/19 05:58 FMR OB H&P: ROS - Review of Systems General: denies: fever/chills, weight/appetite/sleep changes Eyes: denies: vision changes, double vision Cardiovascular: reports: edema. denies: chest pain, palpitation Respiratory: denies: cough, shortness of breath Gastrointestinal: denies: abdominal pain, nausea, vomiting, bright red blood Genitourinary (Female): denies: incontinence, vaginal discharge, vaginal pain, vaginal bleeding, contractions, vaginal pressure Musculoskeletal: denies: pain, tenderness, redness Neurologic: reports: headache. denies: weakness, loss of counsciousness Integumentary: denies: rash, lesions Breast: denies: skin changes Hematologic/Lymphatic: denies: prolonged or excessive bleeding Psychological: denies: depression, anxiety FMR OB H&P: Vital Signs - Maternal Vital signs: BP 122/71 HR 89 RR 16 T98.4 - Heart Tones Baseline: 145 (Reactive strip) Variability: moderate Acceleration: present Deceleration: absent FMR OB H&P: Physical Exam - Physical Exam General: NAD, awake, alert and oriented HEENT: normocephalic and atraumatic, EOMI Neck: supple Chest: non-tender to palpation Heart: RRR, normal S1/S2, no murmurs/rubs/gallops, pulses present Deviation from normal: 2+ pitting edema b/l up to mid najera General: CTAB, no respiratory distress, no wheezing Abdomen: soft, gravid (hard to appreciate due to body habitus), non-tender Musculoskeletal: pulses present, FROM in all four extremities Neurological: no clonus, no tremor, no focal deficit Skin: no rash, good tugor, capillary refill <2 seconds Lymphatic: no unusual bruising or bleeding Psychiatric: intact recent and remote memory, good judgement and insight FMR OB H&P: A/P Disposition: Pt is a 19 yo F who presents with elevated BP Pre-E rule out -elevated BP in clinic today 144/79, 142/80. BP since in hospital has been normal in the 110s. -2+ pitting edema on exam, otherwise normal exam -consider labs if she has elevated pressures: CMP and CBC -Urine Protein/Cr: .2 g/day -BP check q 15 minutes -monitor for symptoms of Pre E Insulin Dependent Diabetic -on home insulin -sugars at home have been fasting <95 and post prandial <120 -Last HgA1c of 8.2% Recurrent loss -hx of 3 miscarriages at <10 weeks; there is discrepancy on this number from patient's variable reports and records of 4 vs 3 miscarriages -workup negative for thrombotic condition Will reassess in 1 hour. Discussion: Date/Time: 02/02/20 1206 This H&P was discussed with Dr. Aguayo and Dr. Wayne who agree with the above documentation and plan. Addendum - Attending - Attending Attestation Date/Time: 02/03/20 0712 I personally evaluated the patient and discussed the management with Dr. I agree with the History, Examination, Assessment and Plan documented above with any addition or exceptions noted below. BP over 2hr all remained well with in normal limits. Pt reporting all normal fsbs at home didnt understand why a1c was elevated. repeat a1c 7.8. pt asked to take glucose monitor to clininc when with next appt. plan per [facility] at this time is delivery 36-37wks pt being d/c home. fetus cat 1 f/u tomorrow
[2020-02-02 12:32] VITALS: BMI 49.4
[2020-02-02 13:20] LABS: Creatinine, Urine 73.58 mg/dL (47-110)
[2020-02-02 15:02] LABS: Hemoglobin A1c 7.8 % (4.0-6.0)
--- NOTE | 2020-02-02 15:06 | PDOC.BPN ---
- Brief Progress Note Patient examined at 1445. Pressures were monitored throughout stay and have been well less than 140 SBP. Patient remains asymptomatic with the exception of 2+ b/l pitting edema which has been present for 1 week. Urine Protein/Cr did not meet threshold for Pre-E. HgA1C was 7.8% and sugar log shows well controlled fasting and post prandial sugars. Plan to discharge and follow up closely with [facility] with routine care given her co morbidites. Encouraged patient to monitor BP at home and monitor symptoms. Patient given triage precautions. Plan discussed with attending Dr. Wayne, and he agrees with above plan.
== END 2020-02-02 15:09 | disposition home or self-care (01) ==
LOC: L&D/OP 11:40
PROVIDERS: ATTEND Student in an Organized Health Care Education/Training Program
DX: O99.89 Other specified diseases and conditions complicating pregnancy, childbirth and the puerperium (principal); R03.0 Elevated blood-pressure reading, without diagnosis of hypertension; O24.113 Pre-existing type 2 diabetes mellitus, in pregnancy, third trimester; E11.9 Type 2 diabetes mellitus without complications; O99.343 Other mental disorders complicating pregnancy, third trimester; F32.9 Major depressive disorder, single episode, unspecified; O26.23 Pregnancy care for patient with recurrent pregnancy loss, third trimester; Z3A.34 34 weeks gestation of pregnancy; Z87.891 Personal history of nicotine dependence; Z79.4 Long term (current) use of insulin; Z79.82 Long term (current) use of aspirin
CPT/HCPCS: 36415; 36416; 82570; 83036; 84156

== ENCOUNTER 2020-02-10 08:02 | Outpatient (CLI) | payer MEDICAID, OTHER ==
[2020-02-10 16:41] LABS: SARS-CoV-2 MS2 Positive; SARS-CoV-2 N Gene Negative; SARS-CoV-2 S Gene Negative; SARS-CoV-2 by NAA Not Detected (NotDetected); SARS-CoV-2 orf1ab Negative
== END 2020-02-10 08:03 | disposition home or self-care (01) ==
LOC: LABSCS 08:02
PROVIDERS: ATTEND Student in an Organized Health Care Education/Training Program
DX: Z20.828 Contact with and (suspected) exposure to other viral communicable diseases (principal)
CPT/HCPCS: 87635; U0003

== ENCOUNTER 2020-02-14 19:30 | Inpatient (IN) | payer MEDICAID, OTHER ==
[2020-02-15] MEDS ORDERED: Docusate 100 MG CAP PO PRN (07:05)
[2020-02-15] MEDS ORDERED: Carboprost 250 MCG/ML AMP IM PRN (07:05)
[2020-02-15] MEDS ORDERED: Methylergonovine 0.2 MG/ML VIAL IM PRN (07:05)
[2020-02-15] MEDS ORDERED: NS / Oxytocin 40 units/1000ml 1,000 ML IV PRN (07:05)
[2020-02-15] MEDS ORDERED: Acetaminophen 500 MG TAB PO PRN (07:05)
[2020-02-15] MEDS ORDERED: Butorphanol Tartrate 1 MG/ML VIAL SLOW IVP PRN (07:05)
[2020-02-15] MEDS ORDERED: Ondansetron PF 4 MG/2 ML Vial IVP PRN ×2 (07:05→10:34)
[2020-02-15] MEDS ORDERED: hydrALAZINE 20 MG/ML VIAL SLOW IVP PRN ×2 (07:05→11:02)
[2020-02-15] MEDS ORDERED: Promethazine HCl 25 MG/ML VIAL IM PRN ×2 (07:05→10:34)
[2020-02-15] MEDS ORDERED: Lidocaine 1% (PF) 30 ML VIAL SC PRN (07:05)
[2020-02-15] MEDS ORDERED: Ibuprofen 800 MG TAB PO PRN (07:05)
[2020-02-15] MEDS ORDERED: Misoprostol 200 MCG TAB PR PRN (07:05)
--- NOTE | 2020-02-15 07:12 | PDOC.FPROB ---
FMR OB H&P: HPI - History of Present Illness Chief Complaint: IOL 2/2 DMII History of Present Illness: Deidra is a 19 yo at 36.4 by 6.3 wk sono presents for mIOL due to uncontrolled DMII. Deidra has been feeling baby move. She denies any bleeding , LOF, or dysuria. She reports her BG was 46 this morning but then 102 after she ate some crackers. Her fasting BGs have been around 90 and her postprandial have been <120 the past few days. Patient has history of gHTN with this . She explains her BPs at home have generally been wnl. She denies any headache, vision changes, CP, or SOB. Primary Care Physician: JEREMY Bradford FMR OB H&P: Current - Care : 4 Para: 0030 Gestational age: 36.4 Due date: 03/10/2020 Dating Criteria: 6.3 wk US Total weight gain: 47 pounds - OB Labs Blood type: O RH: positive Antibody Screen: negative HIV: negative RPR: negative HepBsAg: negative Rubella: immune Quad screen: negative Gonorrhea: negative Chlamydia: negative Pap Smear: NILM A1c: 8.2 GBS: negative H&H: 14.2/41.0 Platelets: 201 - Additional Ultrasound Additional: MFM on 02/13 - Baby is 6lb2oz FMR OB H&P: History - Past Medical History PMH: DMII (A1C 10.9) Depression - started sertraline 01/30 - OB History OB History: SAB x3: APLS reviewed and negative. TSH wnl in December - [employer] History [employer] History: LMP 05/26/19 Pap: NILM 07/18/19 - Surgical History Sx History: None - Social History Social History: Hx of E-cigarette: stopped 01/2019 Denies tobacco, alcohol, or drug use - Family History Family History: DM, HTN, CKD, CAD FMR OB H&P: Medications - Current Home Medications: Medication Instructions Recorded Confirmed Type Vitamin 1 tab PO DAILY tab 12/24/18 02/15/20 Rx Folic Acid [Folvite] 1 mg PO DAILY #30 tab 07/21/19 02/15/20 Rx HumaLOG [HumaLOG Vial] 27 units SC QPM-WM 12/29/19 02/15/20 History HumaLOG [HumaLOG Vial] 37 units SC QAM-WM 12/29/19 02/15/20 History NPH, Human Insulin Isophane 37 unit SC QPM 12/29/19 02/15/20 History [HumuLIN N] NPH, Human Insulin Isophane 64 unit SC QAM 12/29/19 02/15/20 History [HumuLIN N] Aspirin [Ecotrin Low Strength] 1 tab PO DAILY 02/02/20 02/15/20 History Allergies/Adverse Reactions: Allergies Allergy/AdvReac Type Severity Reaction Status Date / Time No Known Allergies Allergy Verified 02/15/20 07:28 FMR OB H&P: ROS - Review of Systems General: denies: fever/chills Eyes: denies: vision changes Cardiovascular: reports: edema. denies: chest pain Respiratory: denies: shortness of breath Gastrointestinal: denies: abdominal pain, nausea, vomiting Genitourinary (Female): denies: dysuria, vaginal discharge, vaginal pain, vaginal bleeding, contractions, vaginal pressure Neurologic: denies: headache FMR OB H&P: Vital Signs - Maternal Vital signs: BP 139/77, P 103 - Heart Tones Baseline: 130 Variability: moderate Acceleration: present Deceleration: absent Category: category 1 [place] contractions every: None FMR OB H&P: Physical Exam - Physical Exam General: NAD, awake, alert and oriented HEENT: normocephalic and atraumatic, EOMI, no scleral icterus, grossly normal vision, grossly normal hearing Neck: FROM Heart: RRR, no murmurs/rubs/gallops General: CTAB, no respiratory distress, good air movement, no wheezing Abdomen: gravid, non-tender Musculoskeletal: FROM in all four extremities Neurological: sensation to pain,touch and proprioception grossly normal Skin: no rash Psychiatric: intact recent and remote memory, good judgement and insight, normal mood and affect FMR OB H&P: A/P Discussion: Date/Time: 02/15/20 0712 19 yo at 36.4 by 6.3 wk eusebia presents for mIOL due to uncontrolled DMII mIOL - Due to poorly controlled DMII and significant risk for IUFD - US performed at [facility] yesterday. Will request those records from clinic this AM. - GBS status unknown. Will call clinic this AM. - Position of baby to be confirmed by bedside US. Will attempt external version if baby is not vertex. - Proceed with induction if version is successful. If not will proceed with c- section. DMII - A1C 8.2 - BG <120 per patient - on insulin - Will check blood glucose this AM gHTN - BP 139/77 - wnl at home per patient Depression - started on Sertraline 01/30 - aware and will monitor This H&P was discussed with [] and [] who agree with the above documentation and plan. Addendum - Attending - Attending Attestation Date/Time: 02/15/20 1317 I personally evaluated the patient and discussed the management with Dr. Calix I agree with the History, Examination, Assessment and Plan documented above with any addition or exceptions noted below - 19 yo @36.4 weeks with Class B DM here for external version with planned induction versus depending on outcome of version due to uncontrolled DM. Last [id number]=0.2%. Denies any ctx, LOF, VB, MOELLER, visual changes. Afebrile VSS A/P: 1) IUP @ 36.4 weeks- USG confirmed breech - head maternal left upper quadrant; spine along maternal left side. Plan to place epidural for pain management and proceed with ECV trial.
[2020-02-15] MEDS ORDERED: NS w/ Oxytocin 10 units 500 ML IV SCH ×2 (07:15)
[2020-02-15] MEDS ORDERED: Lactated Ringer's 1,000 ML IV SCH (07:15)
[2020-02-15] MEDS ORDERED: Aquaphor 30 GM JAR TOP SCH (07:20)
[2020-02-15 07:31] LABS: Hemoglobin 12.9 g/dL (12.0-16.0); Mean Corpuscular HGB CONC 32.6 g/dL (32.0-36.0); Mean Corpuscular Hemoglobin 27.7 pg (27.0-31.0); Mean Corpuscular Volume 84.8 fL (78.0-98.0); Mean Platelet Volume 10.4 fL (7.4-10.4); Platelet Count 212 thou/uL (130-400); RBC Distribution Width 12.6 % (11.5-14.5); Red Blood Cell (RBC) Count 4.65 mill/uL (4.20-5.40); White Blood Cell (WBC) Count 10.9 thou/uL (4.8-10.8)
[2020-02-15 07:37] VITALS: BMI 51.5
[2020-02-15] MEDS ORDERED: Fentanyl 4 mcg/Bup 0.1% Cadd 100 ML ONE (07:59)
[2020-02-15] MEDS ORDERED: Misoprostol 100 MCG TAB VAG SCH (08:00)
[2020-02-15 08:07] LABS: Glucose 87 mg/dL (70-105)
[2020-02-15 08:12] LABS: HBSAg Index 0.14 S/CO (0-0.99); Hep B Surf Ag Non-Reactive S/CO (NonReactive)
[2020-02-15 08:17] LABS: Syphilis Antibody Nonreactive (Nonreactive); Syphilis Antibody Index 0.07 S/CO (<1.00 Non-Reactive)
[2020-02-15] MEDS ORDERED: MINERAL OIL 30 ML UDCUP PO SCH (09:00)
[2020-02-15] MEDS ORDERED: Bicitra 30 ML UDCUP PO SCH (09:45)
[2020-02-15] MEDS ORDERED: CEFAZOLIN 2 GM in Premix Bag 1 BAG IVPB SCH (09:45)
[2020-02-15] MEDS ORDERED: Bicitra 30 ML UDCUP ONE (09:47)
[2020-02-15] MEDS ORDERED: EPHEDRINE 25 MG/5 ML SYRINGE ONE ×2 (09:48→11:13)
[2020-02-15] MEDS ORDERED: Lidocaine 1% PF 5 ML VIAL ONE (09:48)
[2020-02-15] MEDS ORDERED: PHENYLEPHRINE-NS 100 MCG/ML 10 ML SYRINGE ONE (09:48)
[2020-02-15] MEDS ORDERED: Dexamethasone 4 mg/ml Vial ONE (09:48)
[2020-02-15] MEDS ORDERED: Oxytocin 10 UNITS/ML VIAL ONE (09:48)
[2020-02-15] MEDS ORDERED: Ondansetron PF 4 MG/2 ML Vial ONE (09:48)
[2020-02-15] MEDS ORDERED: Lidocaine 2% PF 5 ML VIAL ONE (09:48)
[2020-02-15] MEDS ORDERED: Succinylcholine Chloride 20 MG/ML 10 ml SYRINGE FS ONE (09:55)
[2020-02-15] MEDS ORDERED: PROPOFOL 20 ML ONE (09:55)
[2020-02-15] MEDS ORDERED: Lidocaine 2% MPF 10 ML AMP (For Epidural Use) ONE ×2 (10:09→10:58)
[2020-02-15] MEDS ORDERED: Fentanyl 250 MCG/5 ML VIAL ONE (10:25)
[2020-02-15] MEDS ORDERED: Midazolam HCl 2 mg/2 ml Vial ONE (10:25)
[2020-02-15] MEDS ORDERED: MORPHINE 5 MG/10 ML PF VIAL ONE (10:31)
[2020-02-15] MEDS ORDERED: HYDROmorphone 2 MG/ML VIAL SLOW IVP PRN (10:34)
[2020-02-15] MEDS ORDERED: Naloxone HCl 0.4 mg/ml Vial IV PRN (10:34)
[2020-02-15] MEDS ORDERED: diphenhydrAMINE 50 MG/ML VIAL IVP PRN (10:34)
[2020-02-15] MEDS ORDERED: Meperidine HCl/PF 25 MG/ML VIAL SLOW IVP PRN (10:34)
[2020-02-15] MEDS ORDERED: Naloxone HCl 0.4 mg/ml Vial IVP PRN ×2 (10:34)
[2020-02-15] MEDS ORDERED: Ondansetron HCl/PF 4 MG/2 ML Vial IVP PRN (10:34)
[2020-02-15] MEDS ORDERED: Promethazine HCl 25 MG SUPP PR PRN (10:34)
[2020-02-15] MEDS ORDERED: L&D-Morphine 4 MG/ML VIAL SLOW IVP PRN (10:34)
[2020-02-15] MEDS ORDERED: Metoclopramide HCl 10 MG/2 ML VIAL ONE (10:43)
[2020-02-15] MEDS ORDERED: Ketorolac Tromethamine 30 MG/ML VIAL ONE (10:43)
[2020-02-15] MEDS ORDERED: Communication Order-Pharmacy FS SCH (10:45)
[2020-02-15] MEDS ORDERED: Ketorolac Tromethamine 30 MG/ML VIAL IVP SCH (10:45)
--- NOTE | 2020-02-15 10:48 | PDOC.EVN ---
Event Note - Event Note Event Note: Called to OR to assist Dr. Watson with breech C/S.. Delivered female in double footling breech presentation by rotating back up and delivering nuchal arms. Head delivered spontaneously w/o the [place]ce[place] manuver. Baby was vigourous as handed to Pedi team. FP team to remove placenta, close uterus and complete the operation.
[2020-02-15 10:52] LABS: Actual Bicarbonate (HCO3v) 25 mEq/L (22-28); Base Excess -2.4 mEq/L (-2.0 to +3.0); pH (Cord, venous) 7.31 (7.32-7.43)
[2020-02-15] MEDS ORDERED: Bupivacaine/Epinephrine 0.25% 30 ML VIAL ONE (10:58)
[2020-02-15] MEDS ORDERED: Lanolin Ointment 7 GM TUBE TOP PRN (11:02)
[2020-02-15] MEDS ORDERED: Acetaminophen 325 MG TAB PO PRN (11:02)
[2020-02-15] MEDS ORDERED: Bisacodyl 10 MG SUPP PR PRN (11:02)
--- NOTE | 2020-02-15 13:59 | PDOC.OPDEL ---
OB Operative/Delivery Note - Additional Findings/Plan Compilations/Other Findings: Date of Procedure: 02/15/2020 Resident Surgeon: Dr. Kd Navarro and Dr. Keyana Knight Attending Surgeon: Dr. Ami Watson and Dr. Jonas Valera Procedure: Primary low transverse caesarean section Preoperative Diagnosis: 1)Pre-term intrauterine 2)Breech presentation 3)Uncontrolled Type II DM Postoperative Diagnosis: 1)same as above 2)True umbilical cord knot Anesthesia: General Indications: The patient is a 19 year old G4,P0030 female at 36.4 weeks gestation who presents for a primary scheduled for uncontrolled DM and breech presentation following failed cephalic version. Procedure in Detail: After risks, benefits, and alternatives were explained to the patient, she gave informed consent. Pre-operative antibiotics included Cefazolin 2 gram IV. The patient was taken to the operating room and spinal anesthesia was initiated. She was placed in the supine position with a left tilt and prepped and draped in usual sterile fashion. A Pfannenstiel incision was made with a scalpel and carried down to the level of the fascia which was sharply nicked. The fascial cut was extended bilaterally with Dufur sissors. The inferior and superior edges of the cut fascial edges were elevated with Murtaza clamps and the underlying rectus muscles were sharply and bluntly dissected free. The recti were divided digitally and retracted manually. The peritoneum was entered bluntly and retracted manually. Bladder blade was placed. A low transverse score was made with the scalpel and the uterus was entered in the midline with the scalpel. Clear fluid was seen. The hysterotomy was extended manually. The was noted to be breech and face up. Legs were individually delivered, body was rotated face down, arms were individually delivered across the body, and head was finally delivered. Mouth and nares were bulb suctioned. Cord clamped and cut and grossly normal female was handed to waiting nurse. Cord blood was obtained. Cord segment taken for cord gas. Placenta was manually extracted, found to be intact with 3 vessel cord with true knot present and sent for pathology. The uterus was externalized and the endometrium was curetted with a dry lap. The bladder blade was replaced and the uterus was closed with a running locking #1 monocyrl followed by a running non-locking suture. Following this hemostasis was noted. The abdomen was irrigated with saline and suctioned free of clots. The uterus was internalized and the hysterotomy was again noted to be hemostatic. The fascia was closed with a running non-locking 0-Vicryl suture. The subcutaneous tissue was irrigated, approximated with 2-0 plain suture and there were no bleeders. The skin was approximated with valente and a kofi wound vac was applied. All counts were correct. The patient tolerated the procedure well and was taken to the recovery room in stable condition. Estimated Blood Loss: 730 ml Complications: True umbilical cord knot, required general anesthesia Specimens: Cord blood sent to lab for blood type, cord gas sent, placenta sent Findings: Grossly normal male/female infant with Apgars of 7 and 9. Grossly normal placenta with 3 vessel cord discarded. Drains: Thibodeaux to gravity draining clear urine Addendum - Attending - Attending Attestation Date/Time: 02/15/20 1522 I was present, assisted, and supervised the 1* LCT C/S for breech for this 19 yo @ 36.4 weeks with uncontrolled Class B DM. Anesthesia- epidural/ spinal converted to general. Viable female in pio breech presentation. Apgars 7/9. QBL 730 mL. Mother to recovery in stable condition. Infant to well baby nursery. Residents: Ramon/[place]
[2020-02-15 14:04] LABS: Creatinine, Urine 112.76 mg/dL (47-110)
--- NOTE | 2020-02-15 15:21 | PDOC.OP ---
Operative Note - Operative Note Operative Note: Pre-procedure Dx: 1) IUP@ 36.4 weeks 2) Class B DM Post-procedure Dx: same Procedure: External cephalic version- unsuccessful Procedure Note: A bedside ultrasound was performed which confirmed the single intrauterine and a pio breech presentation. The pelvis was located in the maternal LLQ, spine along the materal left side, and head in the materna LUQ. Using manual pressure, the fetus was manipulated with gentle pressure from the palms against the buttock and posterior occuput to stimulate a forward roll. In total, four attempts where made. HRs were obtained between each attempt and were reassuring, between 135-140 after each attempt. Attempt then made to stimulate a backward roll. All attmepts were unsuccessfully. Discussed with patient and plan to proceed with primary C- section for breech.
--- NOTE | 2020-02-15 15:50 | PDOC.PP ---
Post Progress Note Post Day #: 0 Subjective: Pt is feeling well with minimal bleeding and no pain currently PO intake tolerated: no Flatus: no Ambulation: no Vital Signs (12 hours) Temp Pulse Resp BP BP Pulse Ox 02/15/20 15:35 97.9 F 18 L 18 124/66 99 02/15/20 08:47 103 H 155/84 H 02/15/20 07:28 98.3 F 103 H 18 139/77 Weight Weight 115.666 kg - Physical Examination General: NAD Cardiovascular: no m/r/g, RRR Respiratory: clear to auscultation bilaterally Abdominal: + bowel sounds, lochia, appropriately TTP Extremities: negative homans (B) Skin: CS incision dry & intact, no rash Neurological: no gross focal deficits Psychiatric: A&Ox3, normal affect Result Diagrams: 02/15/20 07:23 02/15/20 07:24 Additional Labs: Post Labs Blood Type O POSITIVE 02/15/20 07:23 Hep Bs Antigen Non-Reactive S/CO (NonReactive) 02/15/20 07:23 (1) Status post Code(s): Z98.891 - HISTORY OF UTERINE SCAR FROM PREVIOUS SURGERY Status: Acute (2) Hypertension Code(s): I10 - ESSENTIAL (PRIMARY) HYPERTENSION Status: Acute Comment: -has been stable since admission -continue home Lisinopril 2.5mg (3) Pregestational diabetes mellitus, modified White class B Code(s): O24.319 - UNSP PRE-EXISTING DIABETES IN , UNSP TRIMESTER Status: Acute (4) Depression Code(s): F32.9 - MAJOR DEPRESSIVE DISORDER, SINGLE EPISODE, UNSPECIFIED Status : Acute - Assessment/Plan 19 yo at 36.4 LTCSx on 02/14 @ 1025 1. LTCS - APGARS: 02/14 - GBS: neg - Lochia: minimal - Just moved from recovery she has not had time to eat, drink, ambulate, and she has a hsu - Elevated BP prior to delivery, currently normal. Will monitor. 2. DMII A1C 8.2 - ACHS blood glucose - Verified insulin regimen, will restart at half doses 3. gHTN - BP 124/66 4. Depression - Started on Sertraline 8/25 - Aware and will monitor Dispo: Will monitor blood sugars and blood pressures. Routine pp care.
[2020-02-15 15:56] LABS: ALT (SGPT) 10 U/L (8-55); AST (SGOT) 16 U/L (5-34); Albumin 3.2 g/dL (3.5-5.0); Alkaline Phosphatase 167 U/L (40-110); Anion Gap 15 mmol/L (10-20); BUN (Urea Nitrogen) 11 mg/dL (7.0-18.7); Bilirubin, Total 0.2 mg/dL (0.2-1.2); Calc. Creatinine Clearance 275 mL/min (70-130); Calcium 8.4 mg/dL (7.8-10.44); Carbon Dioxide 19 mmol/L (22-29); Chloride 107 mmol/L (98-107); Estimated GFR-MDRD Greater than 90; Globulin 3.3 g/dL (2.4-3.5); Glucose 88 mg/dL (70-105); Potassium 3.7 mmol/L (3.5-5.1); Protein, Total 6.5 g/dL (6.0-8.3); Sodium 137 mmol/L (136-145)
[2020-02-15] MEDS: Ibuprofen 800 MG TAB PO SCH ×2 (16:28→20:59)
[2020-02-15] MEDS: Ketorolac Tromethamine 30 MG/ML VIAL IVP PRN (18:04)
[2020-02-15] MEDS ORDERED: metFORMIN 500 MG TAB PO SCH (20:45)
[2020-02-15] MEDS ORDERED: HumaLOG 300 UNITS/3 ML VIAL SC SCH (21:00)
[2020-02-15] MEDS ORDERED: NPH, Human Insulin Isophane 300 UNIT/3 ML VIAL SC SCH (21:00)
[2020-02-15] MEDS ORDERED: Enoxaparin Sodium 40 MG/0.4 ML SYRINGE SC SCH (21:00)
[2020-02-15] MEDS: HYDROcodone/Acetaminophen 5/325 mg Tablet PO PRN (22:25)
[2020-02-16] MEDS ORDERED: Sodium Chloride 0.9% 10 ML ONE (04:31)
[2020-02-16] MEDS: Ketorolac Tromethamine 30 MG/ML VIAL IVP PRN (04:33)
--- NOTE | 2020-02-16 07:19 | PDOC.PP ---
Post Progress Note Post Day #: 1 Subjective: Pt feeling well today. voices no concerns. is planning to attempt breast feeding today. lact consult will see. pain well managed. ambulated a little this morning. PO intake tolerated: yes Flatus: no Ambulation: yes Vital Signs (12 hours) Temp Pulse Resp BP Pulse Ox 02/16/20 05:40 99.2 F 111 H 18 127/66 97 02/16/20 01:25 124 H 02/16/20 01:00 99.0 F 113 H 18 131/75 99 02/15/20 22:12 99.2 F 117 H 18 115/61 97 02/15/20 20:35 126 H 02/15/20 20:10 120 H 02/15/20 20:07 99.5 F 120 H 16 126/72 94 L Weight Weight 115.666 kg - Physical Examination General: NAD Cardiovascular: no m/r/g Respiratory: clear to auscultation bilaterally Abdominal: appropriately TTP Skin: CS incision dry & intact (wound vac in place) Neurological: no gross focal deficits Psychiatric: A&Ox3, normal affect Result Diagrams: 02/16/20 06:53 02/15/20 07:24 Additional Labs: Post Labs Blood Type O POSITIVE 02/15/20 07:23 Hep Bs Antigen Non-Reactive S/CO (NonReactive) 02/15/20 07:23 - Assessment/Plan 19 yo at 36.4 LTCSx on 02/14 @ 1025 1. LTCS - APGARS: 02/14 - GBS: neg - Lochia: minimal - Tolerating PO intake 2. DMII A1C 8.2 - ACHS blood glucose - Received half dose insulin last night - metformin started last night - Will need to titrate insulin requirements now that PP - Would likely benefit from long acting if orals do not control 3. gHTN - BP remained WNL - Diuresed spontaneously overnight 4. Depression - Started on Sertraline 01/30 - Aware and will monitor Dispo: Will monitor blood sugars and blood pressures. Titrate rx to goal glucose. Routine pp care. Addendum - Attending - Attending Attestation Date/Time: 02/16/20 3404 I personally evaluated the patient and discussed the management with Dr. Navarro I agree with the History, Examination, Assessment and Plan documented above with any addition or exceptions noted below - Patient sitting up in chair. Denies any complaints. Afebrile VSS. A/P: 1) POD#1 s/p 1* LCT C/S for breech - H /H stable; continue routine care. 2) Class B DM - continue to monitor BG checks. 3) Pre-eclampsia without severe features- BP improved; continue to monitor.
[2020-02-16 07:21] LABS: Hemoglobin 9.2 g/dL (12.0-16.0); Mean Corpuscular HGB CONC 33.1 g/dL (32.0-36.0); Mean Corpuscular Hemoglobin 27.9 pg (27.0-31.0); Mean Corpuscular Volume 84.4 fL (78.0-98.0); Mean Platelet Volume 10.2 fL (7.4-10.4); Platelet Count 166 thou/uL (130-400); RBC Distribution Width 12.6 % (11.5-14.5); White Blood Cell (WBC) Count 8.5 thou/uL (4.8-10.8)
[2020-02-16] MEDS ORDERED: metFORMIN 500 MG TAB PO SCH (08:00)
[2020-02-16] MEDS: Ibuprofen 800 MG TAB PO SCH ×3 (08:28→21:55)
[2020-02-16] MEDS: Prenatal Vitamin 1 TAB PO SCH (08:33)
[2020-02-16] MEDS: metFORMIN 500 MG TAB PO SCH ×2 (08:33→17:03)
[2020-02-16] MEDS ORDERED: NPH, Human Insulin Isophane 300 UNIT/3 ML VIAL SC SCH (09:00)
[2020-02-16] MEDS ORDERED: HumaLOG 300 UNITS/3 ML VIAL SC SCH (09:00)
[2020-02-16] MEDS ORDERED: Adacel (T-DAP) 0.5 ML SYRINGE IM ONE (09:00)
[2020-02-16] MEDS: HYDROcodone/Acetaminophen 5/325 mg Tablet PO PRN (11:44)
[2020-02-16] MEDS: Enoxaparin Sodium 40 MG/0.4 ML SYRINGE SC SCH (21:55)
--- NOTE | 2020-02-16 23:40 | EKG ---
Test Reason : CP Blood Pressure : / mmHG Vent. Rate : 119 BPM Atrial Rate : 119 BPM P-R Int : 132 ms QRS Dur : 072 ms QT Int : 342 ms P-R-T Axes : 032 015 011 degrees QTc Int : 481 ms Sinus tachycardia Cannot rule out Anterior infarct , age undetermined Abnormal ECG No previous ECGs available Confirmed by Shree TORREZ ([id number]) on 02/16/2020 11:40:12 PM Referred By: LEONARDA baez Confirmed By:Shree TORREZ
[2020-02-17] MEDS: Ibuprofen 800 MG TAB PO SCH ×3 (05:28→22:05)
--- NOTE | 2020-02-17 08:20 | PDOC.PP ---
Post Progress Note Post Day #: 2 Subjective: Pt feeling well this morning. Ambulating without difficulty. Pain is well controlled. PO intake tolerated: yes Flatus: yes Ambulation: yes Vital Signs (12 hours) Temp Pulse Resp BP Pulse Ox 02/17/20 08:10 98.4 F 105 H 18 116/69 100 02/17/20 05:00 98.6 F 113 H 18 121/62 97 Weight Weight 115.666 kg - Physical Examination General: NAD Cardiovascular: RRR Respiratory: clear to auscultation bilaterally Abdominal: + bowel sounds, no distention, appropriately TTP Skin: CS incision dry & intact, no rash Neurological: no gross focal deficits Psychiatric: A&Ox3, normal affect Result Diagrams: 02/16/20 06:53 02/15/20 07:24 Additional Labs: Post Labs Blood Type O POSITIVE 02/15/20 07:23 Hep Bs Antigen Non-Reactive S/CO (NonReactive) 02/15/20 07:23 - Assessment/Plan 19 yo at 36.4 LTCSx on 02/14 @ 1025 1. LTCS - APGARS: 02/14 - GBS: neg - Lochia: minimal - Tolerating PO intake 2. DMII A1C 8.2 - ACHS blood glucose - Metformin increased to 1000 BID 3. gHTN - BP remained WNL - Diuresed spontaneously overnight 4. Depression - Started on Sertraline 01/30 - Aware and will monitor Dispo: Will monitor blood sugars and blood pressures. Titrate rx to goal glucose. Routine pp care. Addendum - Attending - Attending Attestation Date/Time: 02/17/201934 I personally evaluated the patient and discussed the management with Dr. Navarro I agree with the History, Examination, Assessment and Plan documented above with any addition or exceptions noted below - Patient without complaints. Pain well controlled. Afebrile VSS. A/P: 1) POD#2 s/p 1* LCT C/S- continue routine care. 2) Type 2 DM- continue metformin.
[2020-02-17] MEDS: Enoxaparin Sodium 40 MG/0.4 ML SYRINGE SC SCH ×2 (09:36→22:02)
[2020-02-17] MEDS: metFORMIN 500 MG TAB PO SCH ×2 (09:36→17:38)
[2020-02-17] MEDS: Prenatal Vitamin 1 TAB PO SCH (09:36)
[2020-02-18] MEDS: Ibuprofen 800 MG TAB PO SCH (06:05)
--- NOTE | 2020-02-18 07:55 | PDOC.PP ---
Post Progress Note Post Day #: 3 Subjective: No complaints or concerns this morning. Is wondering about obtaining insurance for her child - has not previously thought about this. Discussed having her talk to CM prior to DC. PO intake tolerated: yes Flatus: yes Ambulation: yes Vital Signs (12 hours) Temp Pulse Resp BP 02/17/20 20:00 98.2 F 102 H 18 105/65 Weight Weight 115.666 kg - Physical Examination General: NAD Cardiovascular: RRR Respiratory: clear to auscultation bilaterally Abdominal: + bowel sounds, lochia, appropriately TTP Skin: CS incision dry & intact, no rash Neurological: no gross focal deficits Psychiatric: A&Ox3, normal affect Result Diagrams: 02/16/20 06:53 02/15/20 07:24 Additional Labs: Post Labs Blood Type O POSITIVE 02/15/20 07:23 Hep Bs Antigen Non-Reactive S/CO (NonReactive) 02/15/20 07:23 - Assessment/Plan 19 yo at 36.4 LTCSx on 02/14 @ 1025 1. LTCS - APGARS: 02/14 - GBS: neg - Lochia: minimal - Tolerating PO intake 2. DMII A1C 8.2 - ACHS blood glucose - Metformin 1000 BID - F/u with glucose logs in clinic in 1-2 weeks 3. gHTN - BP remained WNL 4. Depression - Started on Sertraline 01/30 - Aware and will monitor Dispo: Plan for DC today. Addendum - Attending - Attending Attestation Date/Time: 02/18/20 7417 I personally evaluated the patient and discussed the management with Dr. Navarro I agree with the History, Examination, Assessment and Plan documented above with any addition or exceptions noted below- Patient sitting up; denies any complaints. Afebrile VSS A/P: 1) POD#3 s/p 1* LCT C/S for breech - doing well. plan to d/c home today. 2) Class B DM- - continue metformin.
[2020-02-18 08:21] VITALS: BP 126/63; TEMP 98.7
[2020-02-18] MEDS: metFORMIN 500 MG TAB PO SCH (09:38)
[2020-02-18] MEDS: Prenatal Vitamin 1 TAB PO SCH (09:38)
[2020-02-18] MEDS: Enoxaparin Sodium 40 MG/0.4 ML SYRINGE SC SCH (09:38)
== END 2020-02-18 11:25 | disposition home or self-care (01) | DRG 786 ==
LOC: L&D 02-15 06:44 → 3SW 02-15 15:04
PROVIDERS: ADMIT Family Medicine; ATTEND Family Medicine
PROC: 10D00Z1 Extraction of Products of Conception, Low, Open Approach (ICD-10-PCS; principal; 2020-02-15)
PROC: 10S07ZZ Reposition Products of Conception, Via Natural or Artificial Opening (ICD-10-PCS; 2020-02-15)
DX: O32.8XX0 Maternal care for other malpresentation of fetus, not applicable or unspecified (principal); O24.12 Pre-existing type 2 diabetes mellitus, in childbirth; Z37.0 Single live birth; Z3A.36 36 weeks gestation of pregnancy; O13.4 Gestational [pregnancy-induced] hypertension without significant proteinuria, complicating childbirth; E11.9 Type 2 diabetes mellitus without complications; F32.9 Major depressive disorder, single episode, unspecified; O69.2XX0 Labor and delivery complicated by other cord entanglement, with compression, not applicable or unspecified; O99.344 Other mental disorders complicating childbirth; O14.95 Unspecified pre-eclampsia, complicating the puerperium; Z79.4 Long term (current) use of insulin; Z79.899 Other long term (current) drug therapy; Z79.82 Long term (current) use of aspirin; Z87.891 Personal history of nicotine dependence
CPT/HCPCS: 36415; 36416; 51702; 59412; 82570; 82805; 82947; 84156; 85027; 86780; 86850; 86900; 86901; 87340; 88307; 93005; 93010; J0360; J0690; J1100; J1650; J1815; J1885; J2001; J2250; J2274; J2405; J2590; J2704; J2765; J3010

== ENCOUNTER 2021-10-12 04:14 | Emergency (ER) | payer OTHER | END 2021-10-12 06:05 | disposition home or self-care (01) | LOC: ERS 04:14 | DX: R42 Dizziness and giddiness (principal); E11.9 Type 2 diabetes mellitus without complications; Z87.891 Personal history of nicotine dependence | CPT/HCPCS: 99283 ==

== ENCOUNTER 2022-02-12 22:34 | Emergency (ER) | payer OTHER ==
[2022-02-12] MEDS ORDERED: Proparacaine 0.5% Opth 15 ML BOT ONE (23:12)
[2022-02-12] MEDS ORDERED: Metoclopramide HCl 10 MG/2 ML VIAL ONE (23:16)
[2022-02-12] MEDS ORDERED: diphenhydrAMINE 25 MG CAP ONE (23:16)
[2022-02-12] MEDS ORDERED: diphenhydrAMINE 50 MG/ML VIAL ONE (23:33)
== END 2022-02-13 00:58 | disposition home or self-care (01) ==
LOC: ERS 22:34
DX: G43.909 Migraine, unspecified, not intractable, without status migrainosus (principal); H40.051 Ocular hypertension, right eye; E11.9 Type 2 diabetes mellitus without complications; F17.210 Nicotine dependence, cigarettes, uncomplicated; Z79.84 Long term (current) use of oral hypoglycemic drugs
CPT/HCPCS: 93005; 96374; 96375; J1200; J2765

== ENCOUNTER 2022-06-02 15:18 | Emergency (ER) | payer OTHER ==
[2022-06-02 16:03] LABS: #Eosinphils 0.1 thou/uL (0.0-0.7); #Lymphocytes 1.7 thou/uL (1.20-3.40); #Monocytes 0.8 thou/uL (0.11-0.59); #Neutrophils 5.2 thou/uL (1.40-6.50); %Basophils 0.1 % (0.0-1.0); %Eosinophils 1.7 % (0.0-10.0); %Lymphocytes 22.1 % (21.0-51.0); %Monocytes 9.7 % (0.0-10.0); %Neutrophils 66.5 % (42.0-75.0); Hemoglobin 12.5 g/dL (12.0-16.0); Mean Corpuscular HGB CONC 35.7 g/dL (32.0-36.0); Mean Corpuscular Hemoglobin 30.8 pg (27.0-31.0); Mean Corpuscular Volume 86.3 fl (78.0-98.0); Mean Platelet Volume 9.3 fL (7.4-10.4); Platelet Count 243 10x3/uL (130-400); RBC Distribution Width 11.7 % (11.5-14.5); Red Blood Cell (RBC) Count 4.05 mill/uL (4.20-5.40); White Blood Cell (WBC) Count 7.8 10x3/uL (4.8-10.8)
[2022-06-02 16:04] LABS: BHCG - Serum POSITIVE (NEGATIVE); Pregs Control Background? CLEAR/WHITE (CLR/WHITE); Pregs Control Bar Appear? YES (CONTROL BAR)
[2022-06-02 16:23] LABS: ALT (SGPT) 15 U/L (8-55); AST (SGOT) 9 U/L (5-34); Albumin 3.6 g/dL (3.5-5.0); Alkaline Phosphatase 83 U/L (40-110); Anion Gap 16 mmol/L (10-20); BUN (Urea Nitrogen) 6 mg/dL (7.0-18.7); Bilirubin, Total 0.6 mg/dL (0.2-1.2); Calc. Creatinine Clearance 0 mL/min (70-130); Calcium 9.2 mg/dL (7.8-10.44); Carbon Dioxide 23 mmol/L (22-29); Chloride 100 mmol/L (98-107); Estimated GFR 116; Lipase 18 U/L (8-78); Potassium 3.3 mmol/L (3.5-5.1); Protein, Total 7.6 g/dL (6.0-8.3); Sodium 136 mmol/L (136-145)
[2022-06-02 16:31] LABS: Glucose 419 mg/dL (70-105)
[2022-06-02] MEDS ORDERED: Potassium Chloride 20 MEQ TAB ONE (18:55)
[2022-06-02 19:08] LABS: Bacteria/HPF 3+ HPF (None Seen); Bilirubin Negative (Negative); Blood, Urine 1+ (Negative); Clarity Clear (Clear); Glucose, Urine (Dipstick) Greater than 1000 mg/dL (Negative); Ketone, Urine 60 mg/dL (Negative); Leukocyte 75 Leu/uL (Negative); Nitrite Negative (Negative); Protein, Urine (Dipstick) 20 mg/dL (Neg-Trace); Specific Gravity, Urine 1.035 (1.002-1.036); Urobilinogen Normal mg/dL (Less than 2); WBC/HPF 21-50 HPF (0-3); pH, Urine 5.5 (5.0-9.0)
== END 2022-06-02 19:49 | disposition home or self-care (01) ==
LOC: ERS 15:18
DX: O99.611 Diseases of the digestive system complicating pregnancy, first trimester (principal); O00.01 Abdominal pregnancy with intrauterine pregnancy; O24.419 Gestational diabetes mellitus in pregnancy, unspecified control; R82.71 Bacteriuria; I10 Essential (primary) hypertension; Z79.84 Long term (current) use of oral hypoglycemic drugs; Z3A.01 Less than 8 weeks gestation of pregnancy
CPT/HCPCS: 36415; 76856; 80053; 81003; 81015; 83690; 84702; 84703; 85025; 87077; 87086; 87186

== ENCOUNTER 2022-06-23 23:38 | Emergency (ER) | payer OTHER ==
[2022-06-24 00:09] LABS: #Eosinphils 0.1 thou/uL (0.0-0.7); #Lymphocytes 1.6 thou/uL (1.20-3.40); #Monocytes 0.6 thou/uL (0.11-0.59); #Neutrophils 8.1 thou/uL (1.40-6.50); %Basophils 0.2 % (0.0-1.0); %Eosinophils 0.8 % (0.0-10.0); %Lymphocytes 15.3 % (21.0-51.0); %Monocytes 5.8 % (0.0-10.0); Hemoglobin 12.4 g/dL (12.0-16.0); Mean Corpuscular HGB CONC 35.1 g/dL (32.0-36.0); Mean Corpuscular Hemoglobin 30.2 pg (27.0-31.0); Mean Corpuscular Volume 86.2 fl (78.0-98.0); Mean Platelet Volume 8.2 fL (7.4-10.4); Platelet Count 279 10x3/uL (130-400); RBC Distribution Width 12.4 % (11.5-14.5); Red Blood Cell (RBC) Count 4.11 mill/uL (4.20-5.40); White Blood Cell (WBC) Count 10.4 10x3/uL (4.8-10.8)
[2022-06-24 00:31] LABS: ALT (SGPT) 18 U/L (8-55); AST (SGOT) 13 U/L (5-34); Alkaline Phosphatase 67 U/L (40-110); Anion Gap 12 mmol/L (10-20); BUN (Urea Nitrogen) 5 mg/dL (7.0-18.7); Bilirubin, Total 0.6 mg/dL (0.2-1.2); Calc. Creatinine Clearance 0 mL/min (70-130); Calcium 9.1 mg/dL (7.8-10.44); Carbon Dioxide 26 mmol/L (22-29); Chloride 103 mmol/L (98-107); Estimated GFR 129; Globulin 3.7 g/dL (2.4-3.5); Glucose 197 mg/dL (70-105); Potassium 3.3 mmol/L (3.5-5.1); Protein, Total 7.7 g/dL (6.0-8.3); Sodium 138 mmol/L (136-145)
[2022-06-24 01:48] LABS: Bacteria/HPF 1+ HPF (None Seen); Bilirubin Negative (Negative); Blood, Urine 1+ (Negative); Clarity Turbid (Clear); Glucose, Urine (Dipstick) Greater than 1000 mg/dL (Negative); Ketone, Urine Negative (Negative); Leukocyte 250 Leu/uL (Negative); Nitrite Negative (Negative); Protein, Urine (Dipstick) 20 mg/dL (Neg-Trace); Specific Gravity, Urine 1.018 (1.002-1.036); Squamous Epithelial 0-3 HPF (0-3); Urobilinogen Normal mg/dL (Less than 2); WBC/HPF Greater than 50 HPF (0-3); pH, Urine 5.5 (5.0-9.0)
== END 2022-06-24 03:11 | disposition home or self-care (01) ==
LOC: ERS 23:38
DX: N39.0 Urinary tract infection, site not specified (principal); E11.9 Type 2 diabetes mellitus without complications; I10 Essential (primary) hypertension; Z79.4 Long term (current) use of insulin
CPT/HCPCS: 36415; 76856; 80053; 81001; 84702; 85025; 86900; 86901

== ENCOUNTER 2022-09-09 04:36 | Emergency (ER) | payer OTHER ==
[2022-09-09 05:27] LABS: #Eosinphils 0.1 thou/uL (0.0-0.7); #Lymphocytes 0.9 thou/uL (1.20-3.40); #Monocytes 0.7 thou/uL (0.11-0.59); %Basophils 0.2 % (0.0-1.0); %Lymphocytes 6.2 % (21.0-51.0); %Neutrophils 87.6 % (42.0-75.0); Hemoglobin 11.9 g/dL (12.0-16.0); Mean Corpuscular HGB CONC 34.5 g/dL (32.0-36.0); Mean Corpuscular Volume 87.2 fl (78.0-98.0); Mean Platelet Volume 8.4 fL (7.4-10.4); Platelet Count 267 10x3/uL (130-400); RBC Distribution Width 12.1 % (11.5-14.5); Red Blood Cell (RBC) Count 3.97 mill/uL (4.20-5.40); White Blood Cell (WBC) Count 13.7 10x3/uL (4.8-10.8)
[2022-09-09] MEDS ORDERED: Ondansetron PF 4 MG/2 ML Vial ONE (05:45)
[2022-09-09] MEDS ORDERED: Morphine 2 MG/ML VIAL ONE (05:45)
[2022-09-09 05:52] LABS: ALT (SGPT) 7 U/L (8-55); AST (SGOT) 9 U/L (5-34); Albumin 3.4 g/dL (3.5-5.0); Alkaline Phosphatase 52 U/L (40-110); Anion Gap 11 mmol/L (10-20); BUN (Urea Nitrogen) 10 mg/dL (7.0-18.7); Bilirubin, Total 0.3 mg/dL (0.2-1.2); Calc. Creatinine Clearance 0 mL/min (70-130); Calcium 8.7 mg/dL (7.8-10.44); Carbon Dioxide 22 mmol/L (22-29); Chloride 107 mmol/L (98-107); Estimated GFR 127; Globulin 3.6 g/dL (2.4-3.5); Glucose 121 mg/dL (70-105); Potassium 3.5 mmol/L (3.5-5.1); Sodium 136 mmol/L (136-145)
[2022-09-09 07:38] LABS: Bacteria/HPF 4+ HPF (None Seen); Bilirubin Negative (Negative); Blood, Urine 1+ (Negative); Clarity Turbid (Clear); Glucose, Urine (Dipstick) 30 mg/dL (Negative); Ketone, Urine Negative (Negative); Leukocyte 500 Leu/uL (Negative); Nitrite Negative (Negative); Protein, Urine (Dipstick) 70 mg/dL (Neg-Trace); RBC/HPF 0-3 HPF (0-3); Specific Gravity, Urine 1.021 (1.002-1.036); Urobilinogen Normal mg/dL (Less than 2); WBC/HPF Greater than 50 HPF (0-3); pH, Urine 5.5 (5.0-9.0)
== END 2022-09-09 08:05 | disposition home or self-care (01) ==
LOC: ERS 04:36
DX: O23.92 Unspecified genitourinary tract infection in pregnancy, second trimester (principal); D72.829 Elevated white blood cell count, unspecified; E11.9 Type 2 diabetes mellitus without complications; Z3A.18 18 weeks gestation of pregnancy
CPT/HCPCS: 80053; 81003; 81015; 85025; 86850; 86900; 86901; 96374; 96375; J2272; J2405

== ENCOUNTER 2023-11-29 00:58 | Emergency (ER) | payer OTHER | END 2023-11-29 01:27 | disposition home or self-care (01) | LOC: ERS 00:58 | DX: H66.91 Otitis media, unspecified, right ear (principal); E11.9 Type 2 diabetes mellitus without complications; Z79.4 Long term (current) use of insulin | CPT/HCPCS: 99282 ==